=== PATIENT | female | born 1965 | race Caucasian/White ===

== ENCOUNTER 2016-09-11 13:53 | Emergency (ER) | payer OTHER ==
[~2016-09-11] VITALS: Ht 170.2 cm; Wt 90.7 kg
[2016-09-11 14:02] VITALS: BP 145/68
== END 2016-09-11 16:07 | disposition home or self-care (01) ==
LOC: ER 13:53
DX: S60.031A Contusion of right middle finger without damage to nail, initial encounter (principal); X58.XXXA Exposure to other specified factors, initial encounter; Y93.39 Activity, other involving climbing, rappelling and jumping off; Y99.8 Other external cause status; Y92.89 Other specified places as the place of occurrence of the external cause
CPT/HCPCS: 29130; 73140

== ENCOUNTER → 2016-11-09 | Outpatient (CLI) | payer OTHER | END | disposition home or self-care (01) | LOC: LAB 10:15 | DX: I10 Essential (primary) hypertension (principal) | CPT/HCPCS: 86735; 86762; 86765; 86787 ==

== ENCOUNTER → 2017-08-27 | Outpatient (CLI) | payer BC ==
[2017-08-27 08:39] LABS: Basophils # (auto) 0 uL; Basophils % (auto) 0.3 % (0.0-2.0); Eosinophils # (auto) 0.1 uL; Eosinophils % (auto) 1.3 % (0.0-7.0); Hematocrit 41.1 % (36.0-46.0); Hemoglobin 13.8 g/dL (12.2-16.2); Lymphocytes # (auto) 1.7 uL; Lymphocytes % (auto) 25.8 % (10.0-50.0); Mean Corpuscular Hemoglobin 32.7 pg (28.0-32.0); Mean Corpuscular Hgb Conc. 33.5 g/dL (32.0-36.0); Mean Corpuscular Volume 97.6 fL (80.0-100.0); Monocytes # (auto) 0.6 uL; Monocytes % (auto) 8.3 % (0.0-12.0); Neutrophils # (auto) 4.3 uL; Neutrophils % (auto) 64.3 % (37.0-80.0); Platelet Count (auto) 337 10^3/uL (140-450); Red Blood Cells 4.21 10^6/uL (4.0-5.20); Red Cell Distribution Width 12.6 % (11.8-14.3); White Blood Cell 6.6 10^3/uL (4.4-10.8)
[2017-08-27 09:20] LABS: Free T3 2.68 pg/mL (2.3-4.2)
[2017-08-27 09:21] LABS: Free T4 (Free Thyroxine) 1.17 ng/dL (0.89-1.76)
[2017-08-27 09:26] LABS: Albumin 3.8 g/dL (3.4-5.0); Bilirubin, Total 0.7 mg/dL (0.2-1.0); Calcium 8.3 mg/dL (8.5-10.1); Potassium 3.8 mmol/L (3.5-5.1); Total Protein 7.6 g/dL (6.4-8.2)
== END | disposition home or self-care (01) ==
LOC: LAB 07:32
PROVIDERS: ATTEND Internal Medicine
DX: Z00.01 Encounter for general adult medical examination with abnormal findings (principal); E03.9 Hypothyroidism, unspecified; E06.9 Thyroiditis, unspecified; I10 Essential (primary) hypertension
CPT/HCPCS: 36415; 80053; 80061; 83036; 84439; 84443; 84481; 85025

== ENCOUNTER → 2018-02-12 | Outpatient (CLI) | payer BC ==
[2018-02-12 15:22] LABS: Free T3 2.76 pg/mL (2.3-4.2); Free T4 (Free Thyroxine) 1.1 ng/dL (0.89-1.76)
== END | disposition home or self-care (01) ==
LOC: LAB 13:39
PROVIDERS: ATTEND Internal Medicine
DX: E03.9 Hypothyroidism, unspecified (principal)
CPT/HCPCS: 36415; 84439; 84443; 84481

== ENCOUNTER → 2018-04-14 | Day surgery (SDC) | payer BC ==
[2018-04-08 09:01] LABS: Basophils # (auto) 0 uL; Basophils % (auto) 0.3 % (0.0-2.0); Eosinophils # (auto) 0.1 uL; Eosinophils % (auto) 1.2 % (0.0-7.0); Hematocrit 41.5 % (36.0-46.0); Hemoglobin 13.6 g/dL (12.2-16.2); Lymphocytes # (auto) 2.4 uL; Lymphocytes % (auto) 29.6 % (10.0-50.0); Mean Corpuscular Hemoglobin 32.5 pg (28.0-32.0); Mean Corpuscular Hgb Conc. 32.9 g/dL (32.0-36.0); Mean Corpuscular Volume 98.8 fL (80.0-100.0); Monocytes # (auto) 0.7 uL; Monocytes % (auto) 8.5 % (0.0-12.0); Neutrophils # (auto) 4.9 uL; Neutrophils % (auto) 60.4 % (37.0-80.0); Platelet Count (auto) 335 10^3/uL (140-450); Red Cell Distribution Width 12.8 % (11.8-14.3); White Blood Cell 8.1 10^3/uL (4.4-10.8)
[2018-04-08 10:34] LABS: INR 0.88 (0.9-1.15); Partial Thromboplastin Time 28.2 sec (23.78-33.04); Prothrombin Time 9.5 sec (9.27-12.13)
[~2018-04-14] VITALS: Ht 170.2 cm; Wt 90.7 kg
[~2018-04-14] MED LIST: LEVO125T7 PO; LIOT5TAB9 PO; SODIUM CHLORIDE LOCK 10 ML ONE; diphenhdrAMINE 50mg/ml (500mg/10ml VIAL) ONE
[2018-04-14] MEDS: MIDAZOLAM HCL 5 MG/ML-1ML VIAL ONE ×3 (09:12→09:18)
[2018-04-14] MEDS: fentaNYL CITRATE 100 MCG/2 ML VL ONE ×2 (09:12→09:15)
[2018-04-14 09:59] VITALS: BP 126/66
== END | disposition home or self-care (01) ==
LOC: GI 06:46
PROVIDERS: ATTEND Internal Medicine Gastroenterology
DX: K63.5 Polyp of colon (principal); K57.30 Diverticulosis of large intestine without perforation or abscess without bleeding; K64.8 Other hemorrhoids; E66.9 Obesity, unspecified; Z68.31 Body mass index [BMI] 31.0-31.9, adult; Z98.890 Other specified postprocedural states
CPT/HCPCS: 36415; 45380; 84702; 85025; 85610; 85730; 99152; J1200; J2250; J3010; J7030

== ENCOUNTER → 2018-05-15 | Outpatient (CLI) | payer BC ==
[~2018-05-15] MED LIST changes: -SODIUM CHLORIDE LOCK 10 ML ONE; -diphenhdrAMINE 50mg/ml (500mg/10ml VIAL) ONE
== END | disposition home or self-care (01) ==
LOC: LAB 08:30
PROVIDERS: ATTEND Internal Medicine Gastroenterology
DX: K92.1 Melena (principal); K62.89 Other specified diseases of anus and rectum
CPT/HCPCS: 36415; 82565; 84520

== ENCOUNTER → 2018-06-19 | Outpatient (CLI) | payer BC | END | disposition home or self-care (01) | LOC: LAB 13:27 | PROVIDERS: ATTEND Internal Medicine Gastroenterology | DX: R10.9 Unspecified abdominal pain (principal) | CPT/HCPCS: 82784; 83516; 86255 ==

== ENCOUNTER 2018-08-17 12:14 | Inpatient (IN) | payer BC ==
[~2018-08-17] VITALS: Ht 170.2 cm; Wt 105.1 kg
[2018-08-17] MEDS ORDERED: ONDANSETRON HCL 4 MG/2 ML VIAL IV ONE (12:45)
[2018-08-17 12:56] LABS: Urine Bacteria NONE SEEN /hpf (None Seen); Urine Blood TRACE /uL (Negative); Urine Specific Gravity 1.001 (1.001-1.035); Urine WBC <1 /hpf (0 - 5)
[2018-08-17] MEDS ORDERED: ASPirin-EC 81 mg tab PO ONE (13:00)
[2018-08-17 13:25] LABS: Basophils # (auto) 0 uL; Basophils % (auto) 0.4 % (0.0-2.0); Eosinophils # (auto) 0.1 uL; Eosinophils % (auto) 1.1 % (0.0-7.0); Hematocrit 42.3 % (36.0-46.0); Hemoglobin 14.1 g/dL (12.2-16.2); Lymphocytes # (auto) 1.9 uL; Lymphocytes % (auto) 24.7 % (10.0-50.0); Mean Corpuscular Hemoglobin 32.5 pg (28.0-32.0); Mean Corpuscular Hgb Conc. 33.5 g/dL (32.0-36.0); Mean Corpuscular Volume 97.2 fL (80.0-100.0); Monocytes # (auto) 0.5 uL; Neutrophils # (auto) 5.3 uL; Neutrophils % (auto) 67.8 % (37.0-80.0); Nucleated Red Blood Cells % 0.1 %; Platelet Count (auto) 342 10^3/uL (140-450); Red Blood Cells 4.35 10^6/uL (4.0-5.20); Red Cell Distribution Width 13.4 % (11.8-14.3); White Blood Cell 7.8 10^3/uL (4.4-10.8)
[2018-08-17 13:37] LABS: Alanine Aminotransferase 15 U/L (13-56); Albumin 3.8 g/dL (3.4-5.0); Anion Gap 6 (5-15); Aspartate Aminotransferase 9 U/L (15-37); BUN/Creatinine Ratio 16.9; Blood Urea Nitrogen 10 mg/dL (7-18); Calcium 8.3 mg/dL (8.5-10.1); Carbon Dioxide 26 mmol/L (21-32); Chloride 111 mmol/L (98-107); GFR African American 139 mL/min; GFR Non-African American 115 mL/min; Glucose 89 mg/dL (74-106); Potassium 3.7 mmol/L (3.5-5.1); Sodium 143 mmol/L (136-145)
[2018-08-17 13:39] LABS: Bilirubin, Total 0.4 mg/dL (0.2-1.0); Total Protein 7.6 g/dL (6.4-8.2)
[2018-08-17 13:45] LABS: INR 0.93 (0.9-1.15)
[2018-08-17 13:47] LABS: Alkaline Phosphatase 80 U/L (45-117)
[2018-08-17] MEDS ORDERED: MORPHINE SULF INJ 2 MG/ML SYRINGE 1ML IV PRN ×2 (17:30)
[2018-08-17] MEDS ORDERED: NITROGLYCERIN 0.4 MG SL TAB SL PRN (17:30)
[2018-08-17] MEDS ORDERED: hydrALAZINE HCL 20 MG/ML VL IV PRN (17:30)
--- NOTE | 2018-08-17 19:35 | NUR ---
Telemetry admit from ER GEN SALAS admitted to Telemetry unit. Patient oriented to Bernadine carson RN, unit, room, bed, and unit policies regarding patient care and visiting hours. Patient now on continuous telemetry monitoring, tele box #HC 9 and telemetry reading on arrival to unit is SINUS RHYTHM. Patient weighed by bed scale and encouraged to call if they need something. All questions and concerns addressed, patient verbalized understanding.
[2018-08-17 19:40] VITALS: BP 130/85
[2018-08-17 21:00] VITALS: BP 130/85
[2018-08-17] MEDS: ATORVASTATIN 20 MG TAB PO SCH (21:49)
[2018-08-17] MEDS: METOPROLOL TARTRATE 25 MG TAB PO SCH (21:50)
[2018-08-17] MEDS: ACETAMINOPHEN 500 MG TAB PO PRN (21:51)
[2018-08-17 22:33] VITALS: BP 130/95
[2018-08-18 05:38] VITALS: BP 110/69
[2018-08-18 06:16] LABS: Basophils # (auto) 0 uL; Basophils % (auto) 0.4 % (0.0-2.0); Eosinophils # (auto) 0.1 uL; Eosinophils % (auto) 1.8 % (0.0-7.0); Hematocrit 41.5 % (36.0-46.0); Hemoglobin 13.9 g/dL (12.2-16.2); Lymphocytes # (auto) 2.6 uL; Lymphocytes % (auto) 38.6 % (10.0-50.0); Mean Corpuscular Hemoglobin 32.5 pg (28.0-32.0); Mean Corpuscular Hgb Conc. 33.5 g/dL (32.0-36.0); Mean Corpuscular Volume 97.2 fL (80.0-100.0); Monocytes # (auto) 0.5 uL; Monocytes % (auto) 7.5 % (0.0-12.0); Neutrophils # (auto) 3.5 uL; Neutrophils % (auto) 51.7 % (37.0-80.0); Nucleated Red Blood Cells % 0.1 %; Platelet Count (auto) 325 10^3/uL (140-450); Red Blood Cells 4.27 10^6/uL (4.0-5.20); Red Cell Distribution Width 13.2 % (11.8-14.3); White Blood Cell 6.8 10^3/uL (4.4-10.8)
[2018-08-18 06:48] LABS: Cholesterol 176 mg/dL (< 200); Triglycerides 127 mg/dL (< 150)
[2018-08-18 06:50] LABS: HDL Cholesterol 49 mg/dL (40-59); LDL Cholesterol 116 mg/dL (< 100)
[2018-08-18 07:03] LABS: BUN/Creatinine Ratio 12.7; Calcium 8.4 mg/dL (8.5-10.1); Potassium 3.6 mmol/L (3.5-5.1)
--- NOTE | 2018-08-18 07:09 | NUR ---
CLOSING NOTE REPORT ENDORSED TO DAY SHIFT RN PATIENT RESTING. NO S/S OF DISTRESS. NO INCIDENT DURING NIGHT. CALL LIGHT WITHIN REACH.
--- NOTE | 2018-08-18 08:15 | NUR ---
Opening Shift Note Assumed care of patient, awake and alert. No S/S of distress/SOB or pain. Instructed on POC and to call for assist PRN, will continue to monitor for changes Q1hr and PRN.
[2018-08-18 09:00] VITALS: BP 122/68
[2018-08-18] MEDS: ONDANSETRON HCL 4 MG/2 ML VIAL IV PRN (09:47)
[2018-08-18] MEDS: METOPROLOL TARTRATE 25 MG TAB PO SCH ×2 (10:00→21:25)
[2018-08-18] MEDS: ASPirin-EC 81 mg tab PO SCH (10:00)
[2018-08-18] MEDS ORDERED: LISINOPRIL 10 MG TAB PO SCH (10:00)
[2018-08-18] MEDS: PANTOPRAZOLE 40 MG/10 ML VIAL IV SCH (10:00)
--- NOTE | 2018-08-18 10:01 | NUR ---
DIZZINESS Patient reports feeling nauseous, weak, and dizzy. BP 144/93, 99% on 2L N/C, tele monitor reading SR in the 60's. Patient medicated as order. Daughter at bedside.
--- NOTE | 2018-08-18 10:30 | NUR ---
MACHINE FUR CLEANER AT BEDSIDE
--- NOTE | 2018-08-18 10:43 | NUR ---
DR JOEL HERNANDEZ
[2018-08-18] MEDS ORDERED: LEVOTHYROXINE SODIUM 50 MCG TAB PO ONE (11:30)
[2018-08-18 12:00] LABS: Free T3 2.82 pg/mL (2.3-4.2); Free T4 (Free Thyroxine) 1.05 ng/dL (0.89-1.76)
[2018-08-18] MEDS: ACETAMINOPHEN 500 MG TAB PO PRN (12:44)
[2018-08-18 13:00] VITALS: BP 124/81
[2018-08-18 17:00] VITALS: BP 131/76
[2018-08-18] MEDS: HYDROcodone-ACET 5/325MG TAB PO PRN (21:30)
[2018-08-18] MEDS: ATORVASTATIN 20 MG TAB PO SCH (21:30)
[2018-08-18 22:07] VITALS: BP 137/74
[2018-08-19 05:00] VITALS: BP 101/57
[2018-08-19] MEDS: LEVOTHYROXINE SODIUM 50 MCG TAB PO SCH (06:17)
[2018-08-19 09:00] VITALS: BP 114/78
[2018-08-19] MEDS: PANTOPRAZOLE 40 MG/10 ML VIAL IV SCH (09:51)
[2018-08-19] MEDS: ASPirin-EC 81 mg tab PO SCH (09:51)
[2018-08-19] MEDS: METOPROLOL TARTRATE 25 MG TAB PO SCH ×2 (10:00→21:29)
--- NOTE | 2018-08-19 10:30 | NUR ---
MD MARY ely on patient. Discussed plan of care with patient daughter at bedside. Patient will go for stress test tomorrow 08/20/18.
--- NOTE | 2018-08-19 11:00 | NUR ---
AMBULATION Patient ambulating hallway with daughter standby. Patient tolerating well.
[2018-08-19 13:00] VITALS: BP 144/73
[2018-08-19 17:00] VITALS: BP 124/76
[2018-08-19 20:00] VITALS: BP 125/70
[2018-08-19] MEDS: HYDROcodone-ACET 5/325MG TAB PO PRN (21:24)
[2018-08-19] MEDS: ATORVASTATIN 20 MG TAB PO SCH (21:24)
[2018-08-19 22:00] VITALS: BP 125/70
[2018-08-20 05:17] VITALS: BP 110/66
[2018-08-20] MEDS: LEVOTHYROXINE SODIUM 50 MCG TAB PO SCH (06:42)
--- NOTE | 2018-08-20 07:30 | NUR ---
Opening Shift Note Assumed care of patient, awake and alert, walking around with daughter standby. No S/S of distress/SOB or pain. Instructed on POC and to call for assist PRN, will continue to monitor for changes Q1hr and PRN. NOTES Two IV lines flushed, lines patent and free of pain. Patient stayed NPO for scheduled stress test.
[2018-08-20] MEDS ORDERED: ADENOSINE 87 MG in GIVE UN-DILUTED 0 ML IV STA (08:15)
[2018-08-20 08:35] VITALS: BP 113/68
[2018-08-20] MEDS: METOPROLOL TARTRATE 25 MG TAB PO SCH ×2 (10:00→21:30)
[2018-08-20] MEDS: ASPirin-EC 81 mg tab PO SCH (10:00)
[2018-08-20 11:18] VITALS: BP 141/90
--- NOTE | 2018-08-20 11:20 | NUR ---
ROUNDING Patient off unit to complete stress test.
--- NOTE | 2018-08-20 11:52 | NUR ---
ROUNDING Dr Hirsch rounding on patient. Patient clear for discharge if stress test negative.
--- NOTE | 2018-08-20 12:18 | NUR ---
RETURN TO UNIT Patient back on unit from stress lab. Dr Hardy rounded and states he will notify RN with stress test results and discharge clearance.
--- NOTE | 2018-08-20 14:46 | NUR ---
HOLD DISCHARGE Received call from Dr Hardy to hold discharge, prep patient for medical lab scientist in the morning 08/21/2018. states he will explain procedure and test results to patient in am.
--- NOTE | 2018-08-20 14:56 | NUR ---
PAGED Patient requests to speak with Doctor Hardy. Dr Hardy paged.
--- NOTE | 2018-08-20 16:00 | NUR ---
Patient spoke with Dr Hardy regarding test results and scheduled procedure tomorrow. Patient very anxious about procedure. Verbal and printed education provided. Dr Hirsch paged to make aware.
--- NOTE | 2018-08-20 16:29 | NUR ---
Telephone order read back and noted. Patients family at bedside. Patient much calmer. Encouraged patient to call PRN.
[2018-08-20 17:27] VITALS: BP 138/79
[2018-08-20] MEDS: ONDANSETRON HCL 4 MG/2 ML VIAL IV PRN (17:29)
[2018-08-20] MEDS: HYDROcodone-ACET 5/325MG TAB PO PRN (18:55)
--- NOTE | 2018-08-20 21:07 | NUR ---
PAGE TO RE: CARDIOLOGY REPORT FROM RECOMMENDATION OF [facility].
--- NOTE | 2018-08-20 21:10 | NUR ---
RETURNS CALL, UPDATED ON CARDIOLOGY REPORT FROM REGARDING STRESS TEST RESULT STATING "SEVERE REVERSIBILITY IN ALL TERRITORIES. RECOMMEND C [facility]". PER DR. MALDONADO PATIENT IS STABLE, WILL PROCEED WITH C IN AM. NO NEW ORDERS RECEIVED.
[2018-08-20] MEDS: ATORVASTATIN 20 MG TAB PO SCH (21:30)
[2018-08-20] MEDS: LORazepam 0.5 MG TAB PO PRN (21:39)
[2018-08-20 21:48] VITALS: BP 132/78
[2018-08-21 04:35] VITALS: BP 97/54
[2018-08-21] MEDS: LEVOTHYROXINE SODIUM 50 MCG TAB PO SCH (06:50)
--- NOTE | 2018-08-21 08:00 | NUR ---
OPENING NOTE PATIENT SUPPORT SYSTEM AT BEDSIDE. PATIENT STATES SHE IS ANXIOUS ABOUT HER PROCEDURE TODAY. PROVIDED EMOTIONAL SUPPORT AT THIS TIME. NO S/S OF DISTRESS. WILL CONTINUE TO MONITOR.
--- NOTE | 2018-08-21 08:30 | NUR ---
CALLED ORGAN FIXER PER PATIENT REQUEST FOR PENDING PROCEDURE TIME PER ORGAN FIXER PROCEDURE LIKELY AT 1200. INFORMED PATIENT, PATIENT VERBALIZED UNDERSTANDING.
[2018-08-21] MEDS: LORazepam 0.5 MG TAB PO PRN (08:32)
[2018-08-21 08:49] LABS: Basophils # (auto) 0 uL; Basophils % (auto) 0.5 % (0.0-2.0); Eosinophils # (auto) 0.1 uL; Hematocrit 43.1 % (36.0-46.0); Hemoglobin 14.3 g/dL (12.2-16.2); Lymphocytes # (auto) 1.7 uL; Lymphocytes % (auto) 26.7 % (10.0-50.0); Mean Corpuscular Hemoglobin 32.5 pg (28.0-32.0); Mean Corpuscular Hgb Conc. 33.2 g/dL (32.0-36.0); Mean Corpuscular Volume 97.9 fL (80.0-100.0); Monocytes # (auto) 0.5 uL; Neutrophils # (auto) 4.1 uL; Neutrophils % (auto) 63.8 % (37.0-80.0); Platelet Count (auto) 317 10^3/uL (140-450); Red Cell Distribution Width 13.1 % (11.8-14.3); White Blood Cell 6.4 10^3/uL (4.4-10.8)
[2018-08-21 09:04] LABS: BUN/Creatinine Ratio 23.8; Calcium 8.8 mg/dL (8.5-10.1)
[2018-08-21 09:08] LABS: INR 0.97 (0.9-1.15); Prothrombin Time 10.4 sec (9.27-12.13)
[2018-08-21] MEDS: METOPROLOL TARTRATE 25 MG TAB PO SCH (10:00)
[2018-08-21] MEDS: ASPirin-EC 81 mg tab PO SCH (10:00)
--- NOTE | 2018-08-21 10:40 | NUR ---
MD MALDONADO AT BEDSIDE. FAMILY AT BEDSIDE. ALL QUESTIONS AND CONCERNS ADDRESS. CONSENTS FOR PROCEDURE SIGNED AND PLACED IN CHART.
--- NOTE | 2018-08-21 12:00 | NUR ---
PATIENT TAKEN TO ELECTRIC WELDER FAMILY AT BEDSIDE. NO S/S OF DISTRESS.
[2018-08-21] MEDS ORDERED: ANGIOMAX 250 MG VIAL IV ONE (12:21)
[2018-08-21] MEDS ORDERED: SODIUM CHL 0.9% 0 ML ONE (12:21)
[2018-08-21] MEDS ORDERED: fentaNYL CITRATE 100 MCG/2 ML VL ONE (12:21)
[2018-08-21] MEDS ORDERED: MIDAZOLAM HCL 1MG/1ML-2 ML VIAL ONE ×2 (12:21→12:55)
[2018-08-21] MEDS ORDERED: IOHEXOL 350 MG/ML 100ML IJ ONE ×2 (12:29→12:31)
[2018-08-21] MEDS ORDERED: LIDOCAINE 2%HCL (LOCAL ANESTH.) INJ 20ML MDV ONE (12:31)
[2018-08-21 14:00] VITALS: BP 127/62
--- NOTE | 2018-08-21 14:00 | NUR ---
PATIENT BACK IN BED PER AUTOMATIC LINE SET UP MECHANIC NURSE, PATIENT OK TO SIT UP AT 1500. DRESSING CLEAN, DRY, AND INTACT.
--- NOTE | 2018-08-21 14:07 | NUR ---
SPOKE WITH MD BAHENA PATIENT REQUESTING NOTE TO RETURN TO WORK. PER PATIENT CAN RETURN TO WORK NEXT Saturday08/29/18. WILL FOLLOW THROUGH WITH NEW ORDERS.
[2018-08-21 14:15] VITALS: BP 119/70
[2018-08-21 15:30] VITALS: BP 115/74
--- NOTE | 2018-08-21 16:00 | NUR ---
Discharge instructions given as ordered. Encourage to follow up with PMD as instructed. All questions and concerns addressed. Patient verbalized understanding. Medication reconciliation form completed and copy given to patient. IV removed with catheter intact, pressure dressing applied. Right groin dressing from left heart cath clean, dry, and intact. Telemetry unit returned to ICU. Patient alert and oriented x4, walking with a steady gain, no complaints of pain. Patient taken to vehicle via wheelchair with all personal belongings, accompanied by staff and family member. No distress noted at time of departure.
== END 2018-08-21 16:00 | disposition home or self-care (01) | DRG 287 ==
LOC: ER 12:14 → TELE 17:28 → TELE-EAST 19:37
PROVIDERS: ADMIT Nurse Practitioner Acute Care; ATTEND Internal Medicine
PROC: 4A023N7 Measurement of Cardiac Sampling and Pressure, Left Heart, Percutaneous Approach (ICD-10-PCS; principal; 2018-08-21)
PROC: B2151ZZ Fluoroscopy of Left Heart using Low Osmolar Contrast (ICD-10-PCS; 2018-08-21)
PROC: B2111ZZ Fluoroscopy of Multiple Coronary Arteries using Low Osmolar Contrast (ICD-10-PCS; 2018-08-21)
DX: I25.10 Atherosclerotic heart disease of native coronary artery without angina pectoris (principal); I10 Essential (primary) hypertension; K57.90 Diverticulosis of intestine, part unspecified, without perforation or abscess without bleeding; E66.9 Obesity, unspecified; Z68.34 Body mass index [BMI] 34.0-34.9, adult; E06.3 Autoimmune thyroiditis; Z53.20 Procedure and treatment not carried out because of patient's decision for unspecified reasons; I48.0 Paroxysmal atrial fibrillation; I49.3 Ventricular premature depolarization
CPT/HCPCS: 36415; 70450; 71045; 78452; 80048; 80053; 80061; 81001; 81025; 83036; 83735; 84439; 84443; 84481; 84484; 85025; 85379; 85610; 85730; 86141; 93017; 93306; 94761; 96374; 99152; A6257; C9113; G0378; J0153; J2250; J2405

== ENCOUNTER → 2018-09-11 | Outpatient (CLI) | payer BC ==
[~2018-09-11] MED LIST changes: -LIOT5TAB9 PO; +METO25TA62 PO
== END | disposition home or self-care (01) ==
LOC: LAB 10:52
PROVIDERS: ATTEND Internal Medicine
DX: I10 Essential (primary) hypertension (principal)
CPT/HCPCS: 36415; 83036

== ENCOUNTER → 2018-10-08 | Outpatient (CLI) | payer BC | END | disposition home or self-care (01) | LOC: Rad HDHVI 15:46 | PROVIDERS: ATTEND Internal Medicine Cardiovascular Disease | DX: I48.0 Paroxysmal atrial fibrillation (principal); R42 Dizziness and giddiness | CPT/HCPCS: 93306 ==

== ENCOUNTER → 2018-12-24 | Outpatient (CLI) | payer BC ==
[2018-12-24 09:34] LABS: Basophils # (auto) 0 uL; Basophils % (auto) 0.3 % (0.0-2.0); Eosinophils # (auto) 0.1 uL; Eosinophils % (auto) 0.9 % (0.0-7.0); Hematocrit 40.3 % (36.0-46.0); Hemoglobin 13.3 g/dL (12.2-16.2); Lymphocytes # (auto) 2.2 uL; Lymphocytes % (auto) 28.5 % (10.0-50.0); Mean Corpuscular Hemoglobin 31.9 pg (28.0-32.0); Mean Corpuscular Hgb Conc. 32.9 g/dL (32.0-36.0); Monocytes # (auto) 0.6 uL; Monocytes % (auto) 7.4 % (0.0-12.0); Neutrophils # (auto) 4.8 uL; Neutrophils % (auto) 62.9 % (37.0-80.0); Platelet Count (auto) 314 10^3/uL (140-450); Red Blood Cells 4.15 10^6/uL (4.0-5.20); Red Cell Distribution Width 13.5 % (11.8-14.3); White Blood Cell 7.6 10^3/uL (4.4-10.8)
[2018-12-24 10:14] LABS: Albumin 3.5 g/dL (3.4-5.0); Calcium 8.6 mg/dL (8.5-10.1); Potassium 4.2 mmol/L (3.5-5.1)
[2018-12-24 10:17] LABS: BUN/Creatinine Ratio 22.4; Bilirubin, Total 0.4 mg/dL (0.2-1.0); Total Protein 7.4 g/dL (6.4-8.2)
== END | disposition home or self-care (01) ==
LOC: LAB 08:43
DX: I48.91 Unspecified atrial fibrillation (principal)
CPT/HCPCS: 36415; 80053; 84443; 85025

== ENCOUNTER → 2019-01-28 | Outpatient (CLI) | payer BC ==
[2019-01-28 09:03] LABS: Basophils # (auto) 0 uL; Basophils % (auto) 0.3 % (0.0-2.0); Eosinophils # (auto) 0.1 uL; Eosinophils % (auto) 0.9 % (0.0-7.0); Hematocrit 38.8 % (36.0-46.0); Lymphocytes # (auto) 1.9 uL; Lymphocytes % (auto) 27.5 % (10.0-50.0); Mean Corpuscular Hemoglobin 32.4 pg (28.0-32.0); Mean Corpuscular Hgb Conc. 33.6 g/dL (32.0-36.0); Mean Corpuscular Volume 96.3 fL (80.0-100.0); Monocytes # (auto) 0.5 uL; Monocytes % (auto) 8.1 % (0.0-12.0); Neutrophils # (auto) 4.3 uL; Neutrophils % (auto) 63.2 % (37.0-80.0); Platelet Count (auto) 336 10^3/uL (140-450); Red Blood Cells 4.03 10^6/uL (4.0-5.20); Red Cell Distribution Width 13.1 % (11.8-14.3); White Blood Cell 6.8 10^3/uL (4.4-10.8)
[2019-01-28 09:34] LABS: Albumin 3.6 g/dL (3.4-5.0); BUN/Creatinine Ratio 22.6; Calcium 8.4 mg/dL (8.5-10.1); Potassium 3.9 mmol/L (3.5-5.1)
[2019-01-28 09:36] LABS: Bilirubin, Total 0.4 mg/dL (0.2-1.0); Total Protein 7.1 g/dL (6.4-8.2)
== END | disposition home or self-care (01) ==
LOC: LAB 08:40
DX: I48.91 Unspecified atrial fibrillation (principal); E03.9 Hypothyroidism, unspecified
CPT/HCPCS: 36415; 80053; 84443; 85025

== ENCOUNTER → 2019-02-18 | Outpatient (CLI) | payer BC | END | disposition home or self-care (01) | LOC: Rad HDHVI 15:27 | PROVIDERS: ATTEND Internal Medicine Cardiovascular Disease | DX: I08.1 Rheumatic disorders of both mitral and tricuspid valves (principal); Q21.1 Atrial septal defect | CPT/HCPCS: 93306 ==

== ENCOUNTER → 2019-02-19 | Outpatient (CLI) | payer BC | END | disposition home or self-care (01) | LOC: XY 10:50 | PROVIDERS: ATTEND Internal Medicine Cardiovascular Disease | DX: M79.89 Other specified soft tissue disorders (principal) | CPT/HCPCS: 93926 ==

== ENCOUNTER → 2019-03-09 | Outpatient (CLI) | payer BC | END | disposition home or self-care (01) | LOC: Rad HDHVI 10:46 | PROVIDERS: ATTEND Internal Medicine Cardiovascular Disease | DX: I48.19 Other persistent atrial fibrillation (principal); I47.1 Supraventricular tachycardia; R42 Dizziness and giddiness | CPT/HCPCS: 93306 ==

== ENCOUNTER → 2019-03-30 | Outpatient (CLI) | payer BC | END | disposition home or self-care (01) | LOC: LAB 10:25 | PROVIDERS: ATTEND Internal Medicine Cardiovascular Disease | DX: R94.4 Abnormal results of kidney function studies (principal); E66.9 Obesity, unspecified; E03.9 Hypothyroidism, unspecified | CPT/HCPCS: 36415; 82565 ==

== ENCOUNTER → 2019-04-01 | Outpatient (CLI) | payer BC ==
[~2019-04-01] MED LIST changes: +IOHEXOL 350 MG/ML 100ML IJ ONE
[2019-04-01 08:45] VITALS: BP_SYST 153; BP_DIAS 74; BP_DIAS 79
--- NOTE | 2019-04-01 08:45 | NUR ---
CHF/CT PT ARRIVED AT THE CHF CLINIC FOR CT ABD/PELVIS WITH CONTRAST C/O LEG PAIN POST CARDIAC ABLATION. IV insertion IV access obtained, via clean sterile technique by inserting 22 gauge catheter at after attempt(s). IV secured properly. No trauma to site. Patient tolerated procedure well.
--- NOTE | 2019-04-01 09:00 | NUR ---
IV removal IV DC'd with sterile technique, catheter fully intact. Pressure dressing applied to site. Patient tolerated procedure well. Discharged with aftercare instructions per MD. NOTE:
[2019-04-01 09:02] VITALS: BP_SYST 151; BP_SYST 153; BP_DIAS 74; BP_DIAS 88
--- NOTE | 2019-04-01 09:02 | NUR ---
Discharge Instructions See e-MAR for any mediations given with this visit. Patient education given on disease process. Patient verbalized understanding. Previous labs reviewed. Patient discharged in stable condition with after care instructions and follow up appointment. PT TOLERATED CT WELL 0 DISTRESS
== END | disposition home or self-care (01) ==
LOC: Rad HDHVI 08:34
PROVIDERS: ATTEND Internal Medicine Cardiovascular Disease
DX: I70.0 Atherosclerosis of aorta (principal); K57.90 Diverticulosis of intestine, part unspecified, without perforation or abscess without bleeding; I48.0 Paroxysmal atrial fibrillation; S30.1XXD Contusion of abdominal wall, subsequent encounter; X58.XXXD Exposure to other specified factors, subsequent encounter; Z98.890 Other specified postprocedural states; Z86.79 Personal history of other diseases of the circulatory system
CPT/HCPCS: 74177; Q9967

== ENCOUNTER → 2019-07-15 | Outpatient (CLI) | payer BC ==
[~2019-07-15] MED LIST changes: -IOHEXOL 350 MG/ML 100ML IJ ONE; -METO25TA62 PO; +METO25TA93 PO
== END | disposition home or self-care (01) ==
LOC: LAB 15:18
PROVIDERS: ATTEND Internal Medicine
DX: Z12.11 Encounter for screening for malignant neoplasm of colon (principal); I10 Essential (primary) hypertension; E11.9 Type 2 diabetes mellitus without complications
CPT/HCPCS: 36415; 82043; 83036; 84443

== ENCOUNTER → 2019-07-22 | Outpatient (CLI) | payer BC ==
[2019-07-22 09:07] LABS: Basophils # (auto) 0 10 ^3/uL (0-0.2); Basophils % (auto) 0.4 % (0.0-2.0); Eosinophils # (auto) 0.1 10 ^3/uL (0-0.8); Eosinophils % (auto) 1.8 % (0.0-7.0); Hematocrit 41.9 % (36.0-46.0); Hemoglobin 13.7 g/dL (12.2-16.2); Lymphocytes # (auto) 1.9 10 ^3/uL (0.4-5.4); Lymphocytes % (auto) 42.3 % (10.0-50.0); Mean Corpuscular Hemoglobin 30.8 pg (28.0-32.0); Mean Corpuscular Hgb Conc. 32.6 g/dL (32.0-36.0); Mean Corpuscular Volume 94.6 fL (80.0-100.0); Monocytes # (auto) 0.5 10 ^3/uL (0-1.3); Monocytes % (auto) 10.3 % (0.0-12.0); Neutrophils % (auto) 45.2 % (37.0-80.0); Nucleated Red Blood Cells % 0.1 %; Platelet Count (auto) 345 10^3/uL (140-450); Red Blood Cells 4.43 10^6/uL (4.0-5.20); Red Cell Distribution Width 15.1 % (11.8-14.3); White Blood Cell 4.5 10^3/uL (4.4-10.8)
[2019-07-22 09:30] LABS: INR 1.17 (0.9-1.15)
[2019-07-22 09:56] LABS: Follicle Stimulating Hormone 44.61 IU/L (SEE BELOW); Leuteinizing Hormone 30.4 IU/L
== END | disposition home or self-care (01) ==
LOC: LAB 08:33
PROVIDERS: ATTEND Obstetrics & Gynecology
DX: N95.1 Menopausal and female climacteric states (principal); E11.9 Type 2 diabetes mellitus without complications; I48.0 Paroxysmal atrial fibrillation; I10 Essential (primary) hypertension
CPT/HCPCS: 36415; 82670; 83001; 83002; 84403; 84443; 85025; 85610; 85730

== ENCOUNTER → 2019-08-10 | Outpatient (CLI) | payer BC | END | disposition home or self-care (01) | LOC: LAB 10:06 | PROVIDERS: ATTEND Obstetrics & Gynecology | DX: N95.1 Menopausal and female climacteric states (principal) | CPT/HCPCS: 82270 ==

== ENCOUNTER → 2019-11-11 | Outpatient (CLI) | payer BC ==
[2019-11-11 10:01] LABS: Cholesterol 204 mg/dL (< 200); HDL Cholesterol 58 mg/dL (40-59); LDL Cholesterol 139 mg/dL (< 100); Triglycerides 90 mg/dL (< 150)
[2019-11-11 10:08] LABS: Free T3 2.62 pg/mL (2.3-4.2); Free T4 (Free Thyroxine) 1.38 ng/dL (0.89-1.76)
== END | disposition home or self-care (01) ==
LOC: LAB 09:01
PROVIDERS: ATTEND Internal Medicine
DX: I48.0 Paroxysmal atrial fibrillation (principal); R73.03 Prediabetes; N92.6 Irregular menstruation, unspecified
CPT/HCPCS: 36415; 80061; 83036; 83540; 84439; 84443; 84481

== ENCOUNTER → 2020-01-05 | Outpatient (CLI) | payer BC ==
[2020-01-05 11:41] LABS: Basophils # (auto) 0 10 ^3/uL (0-0.2); Basophils % (auto) 0.4 % (0.0-2.0); Eosinophils # (auto) 0 10 ^3/uL (0-0.8); Eosinophils % (auto) 0.6 % (0.0-7.0); Hematocrit 39.9 % (36.0-46.0); Hemoglobin 13.2 g/dL (12.2-16.2); Lymphocytes # (auto) 2.1 10 ^3/uL (0.4-5.4); Lymphocytes % (auto) 36.2 % (10.0-50.0); Mean Corpuscular Hemoglobin 32.3 pg (28.0-32.0); Monocytes # (auto) 0.4 10 ^3/uL (0-1.3); Monocytes % (auto) 7.2 % (0.0-12.0); Neutrophils # (auto) 3.2 10 ^3/uL (1.6-8.6); Neutrophils % (auto) 55.6 % (37.0-80.0); Platelet Count (auto) 383 10^3/uL (140-450); Red Blood Cells 4.08 10^6/uL (4.0-5.20); Red Cell Distribution Width 13.9 % (11.8-14.3); White Blood Cell 5.7 10^3/uL (4.4-10.8)
[2020-01-05 11:57] LABS: INR 1.07 (0.9-1.15); Partial Thromboplastin Time 31.1 sec (23.0-31.2)
[2020-01-05 12:35] LABS: Follicle Stimulating Hormone 30.4 IU/L (SEE BELOW); Leuteinizing Hormone 26.4 IU/L
[2020-01-06 07:09] LABS: RPR Non Reactive (Non Reactive)
== END | disposition home or self-care (01) ==
LOC: LAB 11:08
PROVIDERS: ATTEND Obstetrics & Gynecology
DX: N95.1 Menopausal and female climacteric states (principal); D72.9 Disorder of white blood cells, unspecified
CPT/HCPCS: 36415; 82672; 83001; 83002; 84403; 84443; 85025; 85610; 85730; 86592; 86703; 87340

== ENCOUNTER → 2020-04-18 | Outpatient (CLI) | payer OTHER | END | disposition home or self-care (01) | LOC: LAB 06:32 | PROVIDERS: ATTEND Nurse Practitioner Family | DX: U07.1 COVID-19 (principal) | CPT/HCPCS: C9803; U0003 ==

== ENCOUNTER → 2020-05-02 | Outpatient (CLI) | payer BC ==
[2020-05-03 06:06] LABS: RPR Non Reactive (Non Reactive)
== END | disposition home or self-care (01) ==
LOC: LAB 09:09
PROVIDERS: ATTEND Obstetrics & Gynecology
DX: Z72.51 High risk heterosexual behavior (principal)
CPT/HCPCS: 36415; 86592; 86703; 87086; 87340

== ENCOUNTER → 2020-05-17 | Outpatient (CLI) | payer BC ==
[2020-05-17 14:33] LABS: Urine Bacteria NONE SEEN /hpf (None Seen); Urine Blood 1+ /uL (Negative); Urine Specific Gravity 1.003 (1.001-1.035); Urine WBC 9 /hpf (0 - 5)
== END | disposition home or self-care (01) ==
LOC: LAB 14:12
PROVIDERS: ATTEND Obstetrics & Gynecology
DX: N76.0 Acute vaginitis (principal); N39.0 Urinary tract infection, site not specified; Z20.2 Contact with and (suspected) exposure to infections with a predominantly sexual mode of transmission
CPT/HCPCS: 81001; 86695; 86696; 87070; 87086

== ENCOUNTER → 2020-05-24 | Outpatient (CLI) | payer BC ==
[2020-05-24 11:40] LABS: Basophils # (auto) 0 10 ^3/uL (0-0.2); Basophils % (auto) 0.3 % (0.0-2.0); Eosinophils # (auto) 0 10 ^3/uL (0-0.8); Eosinophils % (auto) 0.5 % (0.0-7.0); Hematocrit 40.4 % (36.0-46.0); Hemoglobin 13.7 g/dL (12.2-16.2); Lymphocytes # (auto) 1.9 10 ^3/uL (0.4-5.4); Lymphocytes % (auto) 30.2 % (10.0-50.0); Mean Corpuscular Hemoglobin 33.2 pg (28.0-32.0); Mean Corpuscular Hgb Conc. 33.9 g/dL (32.0-36.0); Mean Corpuscular Volume 97.8 fL (80.0-100.0); Monocytes # (auto) 0.5 10 ^3/uL (0-1.3); Monocytes % (auto) 8.1 % (0.0-12.0); Neutrophils # (auto) 3.9 10 ^3/uL (1.6-8.6); Neutrophils % (auto) 60.9 % (37.0-80.0); Platelet Count (auto) 302 10^3/uL (140-450); Red Blood Cells 4.13 10^6/uL (4.0-5.20); Red Cell Distribution Width 14.6 % (11.8-14.3); White Blood Cell 6.4 10^3/uL (4.4-10.8)
[2020-05-24 12:09] LABS: Albumin 3.7 g/dL (3.4-5.0); Potassium 4.1 mmol/L (3.5-5.1)
[2020-05-24 12:12] LABS: BUN/Creatinine Ratio 10.7; Bilirubin, Total 0.5 mg/dL (0.2-1.0); Total Protein 7.8 g/dL (6.4-8.2)
== END | disposition home or self-care (01) ==
LOC: LAB 11:16
PROVIDERS: ATTEND Internal Medicine
DX: R06.02 Shortness of breath (principal)
CPT/HCPCS: 36415; 80053; 85025; 85379

== ENCOUNTER → 2020-06-14 | Outpatient (CLI) | payer BC | END | disposition home or self-care (01) | LOC: LAB 16:59 | PROVIDERS: ATTEND Obstetrics & Gynecology | DX: N39.0 Urinary tract infection, site not specified (principal) | CPT/HCPCS: 87086 ==

== ENCOUNTER → 2020-07-12 | Outpatient (CLI) | payer BC ==
[2020-07-12 13:28] LABS: Basophils # (auto) 0 10 ^3/uL (0-0.2); Basophils % (auto) 0.3 % (0.0-2.0); Eosinophils # (auto) 0 10 ^3/uL (0-0.8); Eosinophils % (auto) 0.5 % (0.0-7.0); Hematocrit 40.2 % (36.0-46.0); Hemoglobin 13.8 g/dL (12.2-16.2); Lymphocytes # (auto) 1.9 10 ^3/uL (0.4-5.4); Lymphocytes % (auto) 33.9 % (10.0-50.0); Mean Corpuscular Hemoglobin 33.6 pg (28.0-32.0); Mean Corpuscular Hgb Conc. 34.3 g/dL (32.0-36.0); Mean Corpuscular Volume 97.9 fL (80.0-100.0); Monocytes # (auto) 0.5 10 ^3/uL (0-1.3); Monocytes % (auto) 8.1 % (0.0-12.0); Neutrophils # (auto) 3.2 10 ^3/uL (1.6-8.6); Neutrophils % (auto) 57.2 % (37.0-80.0); Nucleated Red Blood Cells % 0.1 %; Platelet Count (auto) 284 10^3/uL (140-450); Red Blood Cells 4.11 10^6/uL (4.0-5.20); Red Cell Distribution Width 14.3 % (11.8-14.3); White Blood Cell 5.6 10^3/uL (4.4-10.8)
[2020-07-12 14:21] LABS: Leuteinizing Hormone 40.6 IU/L
[2020-07-12 14:22] LABS: Follicle Stimulating Hormone 47.87 IU/L (SEE BELOW)
== END | disposition home or self-care (01) ==
LOC: LAB 13:16
PROVIDERS: ATTEND Obstetrics & Gynecology
DX: N93.9 Abnormal uterine and vaginal bleeding, unspecified (principal)
CPT/HCPCS: 36415; 82672; 83001; 83002; 84403; 84443; 85025

== ENCOUNTER → 2020-07-18 | Outpatient (CLI) | payer BC ==
[2020-07-18 17:23] LABS: Urine Bacteria NONE SEEN /hpf (None Seen); Urine Blood Negative /uL (Negative); Urine Specific Gravity 1.006 (1.001-1.035); Urine WBC 1 /hpf (0 - 5)
== END | disposition home or self-care (01) ==
LOC: LAB 17:10
PROVIDERS: ATTEND Urology
DX: R31.9 Hematuria, unspecified (principal)
CPT/HCPCS: 81001; 87086

== ENCOUNTER → 2020-10-11 | Outpatient (CLI) | payer BC | END | disposition home or self-care (01) | LOC: LAB 14:08 | PROVIDERS: ATTEND Specialist | DX: N39.0 Urinary tract infection, site not specified (principal) | CPT/HCPCS: 87086 ==

== ENCOUNTER → 2020-12-06 | Outpatient (CLI) | payer BC | END | disposition home or self-care (01) | LOC: LAB 07:41 | PROVIDERS: ATTEND Internal Medicine | DX: E04.1 Nontoxic single thyroid nodule (principal) | CPT/HCPCS: 36415; 84443 ==

== ENCOUNTER → 2020-12-12 | Outpatient (CLI) | payer BC | END | disposition home or self-care (01) | LOC: LAB 07:42 | PROVIDERS: ATTEND Internal Medicine | DX: E04.1 Nontoxic single thyroid nodule (principal); M54.5 Low back pain; R73.03 Prediabetes | CPT/HCPCS: 36415; 82043; 83036; 85652; 86141 ==

== ENCOUNTER 2021-02-17 16:06 | Inpatient (IN) | payer BC ==
[~2021-02-17] VITALS: Ht 170.2 cm; Wt 98.6 kg
[2021-02-17 17:06] LABS: Basophils # (auto) 0 10 ^3/uL (0-0.2); Basophils % (auto) 0.2 % (0.0-2.0); Eosinophils # (auto) 0 10 ^3/uL (0-0.8); Eosinophils % (auto) 0.5 % (0.0-7.0); Hematocrit 41.6 % (36.0-46.0); Hemoglobin 13.7 g/dL (12.2-16.2); Lymphocytes # (auto) 2.6 10 ^3/uL (0.4-5.4); Lymphocytes % (auto) 36.1 % (10.0-50.0); Mean Corpuscular Volume 99.9 fL (80.0-100.0); Monocytes # (auto) 0.5 10 ^3/uL (0-1.3); Monocytes % (auto) 6.7 % (0.0-12.0); Neutrophils % (auto) 56.5 % (37.0-80.0); Red Blood Cells 4.17 10^6/uL (4.0-5.20); Red Cell Distribution Width 13.1 % (11.8-14.3); White Blood Cell 7.1 10^3/uL (4.4-10.8)
[2021-02-17] MEDS ORDERED: ASPirin 81 mg TAB PO ONE (17:15)
[2021-02-17 17:22] LABS: Alanine Aminotransferase 18 U/L (13-56); Albumin 3.5 g/dL (3.4-5.0); Anion Gap 9 (5-15); Aspartate Aminotransferase 8 U/L (15-37); BUN/Creatinine Ratio 18.2; Blood Urea Nitrogen 12 mg/dL (7-18); Calcium 8.9 mg/dL (8.5-10.1); Carbon Dioxide 26 mmol/L (21-32); Chloride 108 mmol/L (98-107); GFR African American 120 mL/min; GFR Non-African American 100 mL/min; Glucose 133 mg/dL (74-106); Potassium 3.6 mmol/L (3.5-5.1); Sodium 143 mmol/L (136-145)
[2021-02-17 17:27] LABS: Alkaline Phosphatase 60 U/L (45-117); Bilirubin, Total 0.4 mg/dL (0.2-1.0); Total Protein 7.3 g/dL (6.4-8.2)
[2021-02-17 17:49] LABS: Urine Bacteria FEW /hpf (None Seen); Urine Blood 1+ /uL (Negative); Urine Mucus FEW (None Seen); Urine WBC 40 /hpf (0 - 5)
[2021-02-17] MEDS ORDERED: dilTIAZem 25 MG/5 ML VIAL IV ONE (19:15)
[2021-02-17] MEDS ORDERED: ACETAMINOPHEN 325 MG TAB PO ONE (20:30)
[2021-02-17] MEDS ORDERED: ACETAMINOPHEN 325 MG TAB PO PRN (22:30)
[2021-02-17] MEDS ORDERED: cloNIDine HCL 0.1 MG TAB PO PRN (22:30)
[2021-02-17] MEDS ORDERED: HYDROcodone-ACET 5/325MG TAB PO PRN (22:30)
[2021-02-17] MEDS ORDERED: MORPHINE SULFATE 4 MG/ML SYR/VIAL IV PRN (22:30)
[2021-02-17] MEDS: cefTRIAXone 1GM/50ML D5W 50 ML IV SCH (23:28)
[2021-02-18] VITALS (8 sets, daily range): BP systolic 109–130; BP diastolic 70–85
[2021-02-18] MEDS ORDERED: MORPHINE SULFATE INJECTION 2 MG/ML SYRG IV PRN
[2021-02-18] MEDS ORDERED: NITROGLYCERIN 0.4 MG SL TAB SL PRN
[2021-02-18] MEDS ORDERED: MAGN400T40 PO (04:37)
[2021-02-18] MEDS ORDERED: ALPR0.25 PO (04:37)
[2021-02-18] MEDS ORDERED: RIVA20TA PO (04:37)
[2021-02-18] MEDS ORDERED: ASPI-543 PO (04:37)
[2021-02-18 05:22] LABS: Basophils # (auto) 0 10 ^3/uL (0-0.2); Basophils % (auto) 0.3 % (0.0-2.0); Eosinophils # (auto) 0.1 10 ^3/uL (0-0.8); Eosinophils % (auto) 1.6 % (0.0-7.0); Hematocrit 37.6 % (36.0-46.0); Hemoglobin 12.6 g/dL (12.2-16.2); Lymphocytes # (auto) 3.3 10 ^3/uL (0.4-5.4); Lymphocytes % (auto) 52.7 % (10.0-50.0); Mean Corpuscular Hemoglobin 32.9 pg (28.0-32.0); Mean Corpuscular Hgb Conc. 33.4 g/dL (32.0-36.0); Mean Corpuscular Volume 98.6 fL (80.0-100.0); Monocytes # (auto) 0.5 10 ^3/uL (0-1.3); Monocytes % (auto) 7.4 % (0.0-12.0); Neutrophils # (auto) 2.4 10 ^3/uL (1.6-8.6); Nucleated Red Blood Cells % 0.1 %; Red Blood Cells 3.81 10^6/uL (4.0-5.20); Red Cell Distribution Width 12.8 % (11.8-14.3); White Blood Cell 6.4 10^3/uL (4.4-10.8)
[2021-02-18 05:37] LABS: BUN/Creatinine Ratio 19.6; Potassium 3.3 mmol/L (3.5-5.1)
[2021-02-18 05:38] LABS: Albumin 3.1 g/dL (3.4-5.0); Calcium 8.7 mg/dL (8.5-10.1)
[2021-02-18 05:40] LABS: Bilirubin, Total 0.5 mg/dL (0.2-1.0); Total Protein 6.4 g/dL (6.4-8.2)
[2021-02-18] MEDS: SODIUM CHLOR 0.9% PF (SALINE LOCK) 10ML VIAL/SYR IV SCH ×3 (06:21→22:13)
[2021-02-18] MEDS: ONDANSETRON HCL 4 MG/2 ML VIAL IV PRN ×2 (09:31→20:45)
[2021-02-18] MEDS: FAMOTIDINE (10MG/ML) 2ML VL IV SCH (09:34)
[2021-02-18] MEDS: METOPROLOL TARTRATE 25 MG TAB PO SCH ×2 (09:37→22:00)
[2021-02-18] MEDS ORDERED: ENOXAPARIN SOD 40 MG/0.4 ML SYRINGE SC SCH (10:00)
[2021-02-18] MEDS ORDERED: ASPirin 81 mg TAB PO SCH (10:00)
[2021-02-18] MEDS ORDERED: ATORVASTATIN 20 MG TAB PO ONE (12:00)
[2021-02-18] MEDS ORDERED: LISINOPRIL 20 MG TAB PO ONE (12:00)
[2021-02-18 12:04] LABS: Triglycerides 78 mg/dL (< 150)
[2021-02-18 12:18] LABS: Cholesterol 183 mg/dL (< 200); HDL Cholesterol 55 mg/dL (40-59); LDL Cholesterol 112 mg/dL (< 100)
[2021-02-18] MEDS ORDERED: POTASSIUM CHL 20 Meq TABLET PO ONE (13:00)
[2021-02-18] MEDS ORDERED: IOHEXOL 300 MG/ML 100ML BOTTLE IJ ONE (15:54)
[2021-02-18] MEDS ORDERED: SODIUM CHLORIDE 0.9% 1,000 ML IV ONE (19:00)
[2021-02-18] MEDS: RIVAROXABAN 20 MG TAB PO SCH (19:05)
[2021-02-18] MEDS: MAGNESIUM OXIDE 400 MG TAB PO SCH (22:13)
[2021-02-18] MEDS: ATORVASTATIN 20 MG TAB PO SCH (22:13)
[2021-02-18] MEDS: cefTRIAXone 1GM/50ML D5W 50 ML IV SCH (22:13)
[2021-02-19] MEDS ORDERED: ALPRAZolam 0.25 MG TAB PO ONE (00:30)
[2021-02-19 05:00] VITALS: BP 107/67
[2021-02-19] MEDS: SODIUM CHLOR 0.9% PF (SALINE LOCK) 10ML VIAL/SYR IV SCH ×3 (06:00→21:52)
[2021-02-19 06:22] LABS: Potassium 3.8 mmol/L (3.5-5.1)
[2021-02-19 06:30] LABS: Calcium 8.4 mg/dL (8.5-10.1)
[2021-02-19] MEDS: LEVOTHYROXINE SODIUM 112 MCG TAB PO SCH (06:34)
[2021-02-19 09:00] VITALS: BP 108/65
[2021-02-19] MEDS: MAGNESIUM OXIDE 400 MG TAB PO SCH ×2 (09:11→21:52)
[2021-02-19] MEDS: METOPROLOL SUCCINATE XL 50 MG TAB PO SCH (09:11)
[2021-02-19] MEDS: FAMOTIDINE (10MG/ML) 2ML VL IV SCH (09:11)
[2021-02-19] MEDS: LISINOPRIL 20 MG TAB PO SCH (09:13)
[2021-02-19 13:00] VITALS: BP 126/94
[2021-02-19 17:00] VITALS: BP 125/81
[2021-02-19] MEDS: RIVAROXABAN 20 MG TAB PO SCH (17:33)
[2021-02-19] MEDS: DOCUSATE SOD 100 MG CAP PO PRN (17:45)
[2021-02-19] MEDS ORDERED: FLUCONAZOLE 100 MG TAB PO ONE (19:15)
[2021-02-19] MEDS ORDERED: LORazepam 2MG/ML-1ML VIAL IV PRN (20:00)
[2021-02-19] MEDS: cefTRIAXone 1GM/50ML D5W 50 ML IV SCH (21:52)
[2021-02-19] MEDS: ATORVASTATIN 20 MG TAB PO SCH (21:52)
[2021-02-19 22:00] VITALS: BP 128/70
[2021-02-19] MEDS: ONDANSETRON HCL 4 MG/2 ML VIAL IV PRN (23:00)
[2021-02-20 05:00] VITALS: BP 126/49
[2021-02-20] MEDS: LEVOTHYROXINE SODIUM 112 MCG TAB PO SCH (05:23)
[2021-02-20] MEDS: SODIUM CHLOR 0.9% PF (SALINE LOCK) 10ML VIAL/SYR IV SCH ×3 (05:25→22:00)
[2021-02-20 09:00] VITALS: BP 130/77
[2021-02-20] MEDS: METOPROLOL SUCCINATE XL 50 MG TAB PO SCH (10:00)
[2021-02-20] MEDS: LISINOPRIL 20 MG TAB PO SCH (10:00)
[2021-02-20] MEDS: FLUCONAZOLE 100 MG TAB PO SCH (10:00)
[2021-02-20] MEDS: MAGNESIUM OXIDE 400 MG TAB PO SCH ×2 (10:00→22:22)
[2021-02-20] MEDS ORDERED: LORazepam 2MG/ML-1ML VIAL IV ONE (10:30)
[2021-02-20] MEDS: FAMOTIDINE (10MG/ML) 2ML VL IV SCH (10:45)
[2021-02-20 13:00] VITALS: BP 108/70
[2021-02-20] MEDS: ONDANSETRON HCL 4 MG/2 ML VIAL IV PRN (14:08)
[2021-02-20] MEDS ORDERED: LACTULOSE 20Gm/30ML SOLN PO ONE (15:00)
[2021-02-20 17:00] VITALS: BP 110/68
[2021-02-20] MEDS: RIVAROXABAN 20 MG TAB PO SCH (18:24)
[2021-02-20 21:35] VITALS: BP 105/71
[2021-02-20] MEDS: cefTRIAXone 1GM/50ML D5W 50 ML IV SCH (22:21)
[2021-02-20] MEDS: SOTALOL HCL 80 MG TAB PO SCH (22:22)
[2021-02-20] MEDS: ATORVASTATIN 20 MG TAB PO SCH (22:22)
[2021-02-20] MEDS ORDERED: TEMAZEPAM 15 MG CAP PO ONE (22:30)
[2021-02-21 04:49] VITALS: BP 97/62
[2021-02-21] MEDS: SODIUM CHLOR 0.9% PF (SALINE LOCK) 10ML VIAL/SYR IV SCH ×3 (07:00→21:18)
[2021-02-21] MEDS ORDERED: ADENOSINE 72 MG in GIVE UN-DILUTED 0 ML IV STA (08:20)
[2021-02-21 08:28] VITALS: BP 113/72
[2021-02-21 09:30] VITALS: BP 105/65
[2021-02-21] MEDS: LISINOPRIL 20 MG TAB PO SCH (10:00)
[2021-02-21] MEDS: FAMOTIDINE (10MG/ML) 2ML VL IV SCH (10:16)
[2021-02-21] MEDS: MAGNESIUM OXIDE 400 MG TAB PO SCH ×2 (10:23→21:17)
[2021-02-21] MEDS: LEVOTHYROXINE SODIUM 112 MCG TAB PO SCH (10:23)
[2021-02-21] MEDS: SOTALOL HCL 80 MG TAB PO SCH ×2 (10:24→21:18)
[2021-02-21] MEDS: FLUCONAZOLE 100 MG TAB PO SCH (10:26)
[2021-02-21 13:30] VITALS: BP 128/83
[2021-02-21 17:10] VITALS: BP 109/55
[2021-02-21] MEDS: DOCUSATE SOD 100 MG CAP PO PRN (18:24)
[2021-02-21] MEDS: RIVAROXABAN 20 MG TAB PO SCH (18:24)
[2021-02-21] MEDS ORDERED: TEMAZEPAM 15 MG CAP PO PRN (20:30)
[2021-02-21] MEDS: ATORVASTATIN 20 MG TAB PO SCH (21:17)
[2021-02-21] MEDS: cefTRIAXone 1GM/50ML D5W 50 ML IV SCH (21:23)
[2021-02-21 22:00] VITALS: BP 128/74
[2021-02-22 05:00] VITALS: BP 91/54
[2021-02-22] MEDS: SODIUM CHLOR 0.9% PF (SALINE LOCK) 10ML VIAL/SYR IV SCH ×2 (06:26→14:20)
[2021-02-22] MEDS: LEVOTHYROXINE SODIUM 112 MCG TAB PO SCH (06:48)
[2021-02-22 09:00] VITALS: BP 111/75
[2021-02-22] MEDS: SOTALOL HCL 80 MG TAB PO SCH (10:00)
[2021-02-22] MEDS: LISINOPRIL 20 MG TAB PO SCH (10:00)
[2021-02-22] MEDS: FAMOTIDINE (10MG/ML) 2ML VL IV SCH (10:00)
[2021-02-22] MEDS: MAGNESIUM OXIDE 400 MG TAB PO SCH (10:00)
[2021-02-22] MEDS: FLUCONAZOLE 100 MG TAB PO SCH (10:00)
[2021-02-22 13:00] VITALS: BP 128/83
[2021-02-22 14:26] VITALS: BP 111/75
== END 2021-02-22 15:00 | disposition home or self-care (01) | DRG 125 ==
LOC: EEVIPCON 16:06 → ER 16:06 → TELE-CENTR 23:59
PROVIDERS: ADMIT Nurse Practitioner Family; ATTEND Family Medicine
DX: H53.8 Other visual disturbances (principal); N39.0 Urinary tract infection, site not specified; R07.89 Other chest pain; E78.00 Pure hypercholesterolemia, unspecified; E87.6 Hypokalemia; F40.240 Claustrophobia; G47.00 Insomnia, unspecified; Z20.822 Contact with and (suspected) exposure to COVID-19; I10 Essential (primary) hypertension; E03.9 Hypothyroidism, unspecified; I25.10 Atherosclerotic heart disease of native coronary artery without angina pectoris; I48.91 Unspecified atrial fibrillation; Z79.01 Long term (current) use of anticoagulants; Z79.899 Other long term (current) drug therapy; Z80.3 Family history of malignant neoplasm of breast; Z83.3 Family history of diabetes mellitus
CPT/HCPCS: 36415; 70470; 70540; 70551; 71045; 78452; 80048; 80053; 80061; 81001; 83036; 84443; 84484; 85025; 87086; 87426; 93005; 93017; 93306; 99291; G0378; J0153; J0696; J2405; J3490

== ENCOUNTER → 2021-05-10 | Outpatient (CLI) | payer BC ==
[~2021-05-10] MED LIST changes: +ALPR0.25 PO; +ASPI-543 PO; +MAGN400T40 PO; +RIVA20TA PO
[2021-05-10 10:36] LABS: Urine Bacteria NONE SEEN /hpf (None Seen); Urine Blood 1+ /uL (Negative); Urine Specific Gravity 1.012 (1.001-1.035); Urine WBC 2 /hpf (0 - 5)
[2021-05-10 11:13] LABS: Potassium 4.4 mmol/L (3.5-5.1)
[2021-05-10 11:18] LABS: BUN/Creatinine Ratio 23.7; Bilirubin, Total 0.6 mg/dL (0.2-1.0); Total Protein 7.4 g/dL (6.4-8.2)
[2021-05-10 11:55] LABS: Free T4 (Free Thyroxine) 1.3 ng/dL (0.89-1.76)
[2021-05-10 11:56] LABS: Free T3 2.97 pg/mL (2.3-4.2)
== END | disposition home or self-care (01) ==
LOC: LAB 09:59
PROVIDERS: ATTEND Internal Medicine
DX: I48.0 Paroxysmal atrial fibrillation (principal); E03.9 Hypothyroidism, unspecified; N39.0 Urinary tract infection, site not specified; E78.5 Hyperlipidemia, unspecified; R00.2 Palpitations
CPT/HCPCS: 36415; 80053; 81001; 82043; 84439; 84443; 84481

== ENCOUNTER → 2021-06-30 | Outpatient (CLI) | payer BC ==
[2021-06-30 12:12] LABS: Urine Bacteria NONE SEEN /hpf (None Seen); Urine Blood Negative /uL (Negative); Urine Specific Gravity 1.005 (1.001-1.035); Urine WBC <1 /hpf (0 - 5)
== END | disposition home or self-care (01) ==
LOC: LAB 09:24
PROVIDERS: ATTEND Internal Medicine
DX: Z00.00 Encounter for general adult medical examination without abnormal findings (principal); E03.9 Hypothyroidism, unspecified; M25.552 Pain in left hip
CPT/HCPCS: 36415; 81001; 84443; 84550; 85652; 86431

== ENCOUNTER → 2021-08-23 | Outpatient (CLI) | payer BC ==
[2021-08-23 17:08] LABS: Hepatitis A Ab IgM Negative
[2021-08-23 17:10] LABS: Hepatitis B Core IgM Negative
[2021-08-23 17:11] LABS: Hepatitis C Antibody Negative (Negative)
[2021-08-24 08:07] LABS: RPR Non Reactive (Non Reactive)
== END | disposition home or self-care (01) ==
LOC: LAB 12:04
PROVIDERS: ATTEND Obstetrics & Gynecology
DX: Z72.51 High risk heterosexual behavior (principal)
CPT/HCPCS: 36415; 80074; 86592; 86695; 86696; 86703

== ENCOUNTER → 2021-12-13 | Outpatient (CLI) | payer BC ==
[2021-12-13 11:40] LABS: Urine Blood TRACE /uL (Negative)
== END | disposition home or self-care (01) ==
LOC: LAB 10:29
PROVIDERS: ATTEND Internal Medicine Cardiovascular Disease
DX: N39.0 Urinary tract infection, site not specified (principal)
CPT/HCPCS: 81003; 87086

== ENCOUNTER → 2021-12-15 | Outpatient (CLI) | payer BC | END | disposition home or self-care (01) | LOC: LAB 10:46 | PROVIDERS: ATTEND Obstetrics & Gynecology | DX: N89.8 Other specified noninflammatory disorders of vagina (principal) | CPT/HCPCS: 86695; 86696 ==

== ENCOUNTER → 2022-01-03 | Outpatient (CLI) | payer BC | END | disposition home or self-care (01) | LOC: Rad HDHVI 08:59 | PROVIDERS: ATTEND Internal Medicine Cardiovascular Disease | DX: R00.1 Bradycardia, unspecified (principal); R06.02 Shortness of breath | CPT/HCPCS: 93306 ==

== ENCOUNTER 2022-01-16 14:57 | Emergency (ER) | payer BC ==
[~2022-01-16] VITALS: Ht 170.2 cm; Wt 90.7 kg
[2022-01-16] MEDS ORDERED: methylPREDNISolone SOD SUCC 125 MG/2 ML VL IM ONE (15:30)
[2022-01-16] MEDS ORDERED: diphenhdrAMINE HCL 50 MG/1 ML VL IM ONE (15:30)
[2022-01-16] MEDS ORDERED: methylPREDNISolone SOD SUCC 125 MG/2 ML VL IV ONE (16:00)
[2022-01-16] MEDS ORDERED: diphenhdrAMINE HCL 50 MG/1 ML VL IV ONE ×2 (16:00→18:30)
[2022-01-16 18:28] VITALS: BP 115/68
== END 2022-01-16 19:02 | disposition home or self-care (01) ==
LOC: ER 14:57
DX: L50.0 Allergic urticaria (principal); I10 Essential (primary) hypertension; I48.91 Unspecified atrial fibrillation; Z86.73 Personal history of transient ischemic attack (TIA), and cerebral infarction without residual deficits
CPT/HCPCS: 93005; 96374; 96375; 99284; J1200; J2930

== ENCOUNTER → 2022-01-23 | Outpatient (CLI) | payer BC ==
[2022-01-23 14:15] LABS: Free T3 4.95 pg/mL (2.3-4.2); Free T4 (Free Thyroxine) 1.82 ng/dL (0.89-1.76)
== END | disposition home or self-care (01) ==
LOC: LAB 12:36
PROVIDERS: ATTEND Internal Medicine
DX: E04.1 Nontoxic single thyroid nodule (principal)
CPT/HCPCS: 36415; 84439; 84443; 84481

== ENCOUNTER → 2022-02-14 | Outpatient (CLI) | payer BC | END | disposition home or self-care (01) | LOC: LAB 09:00 | PROVIDERS: ATTEND Internal Medicine | DX: E03.9 Hypothyroidism, unspecified (principal); I48.0 Paroxysmal atrial fibrillation | CPT/HCPCS: 36415; 84443; 85652; 86038 ==

== ENCOUNTER → 2022-02-28 | Outpatient (CLI) | payer BC ==
[~2022-02-28] MED LIST changes: +FLEC1TAB PO
== END | disposition home or self-care (01) ==
LOC: XY 07:13
PROVIDERS: ATTEND Internal Medicine
DX: E04.1 Nontoxic single thyroid nodule (principal); E03.9 Hypothyroidism, unspecified
CPT/HCPCS: 78014; A9516

== ENCOUNTER 2022-03-15 19:53 | Inpatient (IN) | payer BC ==
[~2022-03-15] VITALS: Ht 170.2 cm; Wt 53.7 kg
[~2022-03-15 19:53] MED LIST changes: -FLEC1TAB PO
[2022-03-15 23:40] LABS: Basophils # (auto) 0 10 ^3/uL (0-0.2); Basophils % (auto) 0.3 % (0.0-2.0); Eosinophils # (auto) 0.1 10 ^3/uL (0-0.8); Eosinophils % (auto) 1.5 % (0.0-7.0); Hematocrit 41.2 % (36.0-46.0); Hemoglobin 14.1 g/dL (12.2-16.2); Lymphocytes # (auto) 3.5 10 ^3/uL (0.4-5.4); Lymphocytes % (auto) 46.7 % (10.0-50.0); Mean Corpuscular Hemoglobin 32.1 pg (28.0-32.0); Mean Corpuscular Hgb Conc. 34.1 g/dL (32.0-36.0); Mean Corpuscular Volume 94.1 fL (80.0-100.0); Monocytes # (auto) 0.5 10 ^3/uL (0-1.3); Neutrophils # (auto) 3.3 10 ^3/uL (1.6-8.6); Neutrophils % (auto) 44.5 % (37.0-80.0); Nucleated Red Blood Cells % 0.1 %; Red Blood Cells 4.38 10^6/uL (4.0-5.20); Red Cell Distribution Width 12.7 % (11.8-14.3); White Blood Cell 7.4 10^3/uL (4.4-10.8)
[2022-03-16 00:13] LABS: Albumin 3.7 g/dL (3.4-5.0); BUN/Creatinine Ratio 16.7; Calcium 8.6 mg/dL (8.5-10.1); Potassium 4.1 mmol/L (3.5-5.1)
[2022-03-16 00:15] LABS: Bilirubin, Total 0.4 mg/dL (0.2-1.0); Total Protein 7.2 g/dL (6.4-8.2)
[2022-03-16] MEDS ORDERED: diphenhdrAMINE HCL 50 MG/1 ML VL IV ONE (01:15)
[2022-03-16] MEDS ORDERED: methylPREDNISolone SOD SUCC 125 MG/2 ML VL IV ONE (01:15)
[2022-03-16] MEDS ORDERED: MORPHINE SULFATE INJ 2 MG/ml SYRG IV PRN (03:15)
[2022-03-16] MEDS ORDERED: DOCUSATE SOD 100 MG CAP PO PRN (03:15)
[2022-03-16] MEDS ORDERED: NITROGLYCERIN 0.4 MG SL TAB SL PRN (03:15)
[2022-03-16] MEDS ORDERED: HYDROcodone-ACET 5/325MG TAB PO PRN (03:15)
[2022-03-16] MEDS: SODIUM CHLORIDE 0.9% 1,000 ML IV SCH ×2 (04:49→19:55)
[2022-03-16 05:28] LABS: Basophils # (auto) 0 10 ^3/uL (0-0.2); Basophils % (auto) 0.1 % (0.0-2.0); Eosinophils # (auto) 0.1 10 ^3/uL (0-0.8); Eosinophils % (auto) 1.1 % (0.0-7.0); Hematocrit 39.4 % (36.0-46.0); Hemoglobin 13.7 g/dL (12.2-16.2); Lymphocytes # (auto) 1.8 10 ^3/uL (0.4-5.4); Lymphocytes % (auto) 26.6 % (10.0-50.0); Mean Corpuscular Hemoglobin 32.6 pg (28.0-32.0); Mean Corpuscular Hgb Conc. 34.8 g/dL (32.0-36.0); Mean Corpuscular Volume 93.5 fL (80.0-100.0); Monocytes # (auto) 0.3 10 ^3/uL (0-1.3); Monocytes % (auto) 3.8 % (0.0-12.0); Neutrophils # (auto) 4.7 10 ^3/uL (1.6-8.6); Neutrophils % (auto) 68.4 % (37.0-80.0); Red Blood Cells 4.21 10^6/uL (4.0-5.20); Red Cell Distribution Width 12.5 % (11.8-14.3); White Blood Cell 6.8 10^3/uL (4.4-10.8)
[2022-03-16 05:46] LABS: Potassium 4.4 mmol/L (3.5-5.1)
[2022-03-16 05:51] LABS: Albumin 3.9 g/dL (3.4-5.0); BUN/Creatinine Ratio 15.4; Calcium 8.9 mg/dL (8.5-10.1)
[2022-03-16 05:54] LABS: Bilirubin, Total 0.6 mg/dL (0.2-1.0); Total Protein 7.4 g/dL (6.4-8.2)
[2022-03-16] MEDS: ONDANSETRON HCL 4 MG/2 ML VIAL IV PRN ×2 (06:59→20:57)
[2022-03-16] MEDS ORDERED: IPRATROPIUM BROM 0.5 MG/2.5ML INH SOL NEB PRN (10:00)
[2022-03-16] MEDS ORDERED: ALBUTEROL SULF 2.5 MG/0.5ML(0.5%) NEB SOLN NEB PRN (10:00)
[2022-03-16 10:34] VITALS: BP 147/87
[2022-03-16 13:20] VITALS: BP 132/85
[2022-03-16] MEDS ORDERED: FLEC1TAB PO (14:23)
[2022-03-16] MEDS: ACETAMINOPHEN 325 MG TAB PO PRN ×2 (14:28→20:44)
[2022-03-16] MEDS: methylPREDNISolone SOD SUCC 40 MG/ML VL IV SCH ×2 (14:29→20:45)
[2022-03-16] MEDS: diphenhdrAMINE HCL 50 MG/1 ML VL IV PRN ×2 (14:31→20:44)
[2022-03-16 17:00] VITALS: BP 129/85
[2022-03-16 22:00] VITALS: BP 133/92
[2022-03-17] MEDS: diphenhdrAMINE HCL 50 MG/1 ML VL IV PRN ×4 (02:15→21:24)
[2022-03-17 05:08] VITALS: BP 104/66
[2022-03-17 05:23] LABS: Basophils # (auto) 0 10 ^3/uL (0-0.2); Basophils % (auto) 0.3 % (0.0-2.0); Eosinophils # (auto) 0 10 ^3/uL (0-0.8); Hematocrit 39.1 % (36.0-46.0); Hemoglobin 13.1 g/dL (12.2-16.2); Lymphocytes # (auto) 1.4 10 ^3/uL (0.4-5.4); Lymphocytes % (auto) 11.4 % (10.0-50.0); Mean Corpuscular Hemoglobin 31.8 pg (28.0-32.0); Mean Corpuscular Hgb Conc. 33.6 g/dL (32.0-36.0); Mean Corpuscular Volume 94.6 fL (80.0-100.0); Monocytes # (auto) 0.5 10 ^3/uL (0-1.3); Monocytes % (auto) 4.2 % (0.0-12.0); Neutrophils # (auto) 10.1 10 ^3/uL (1.6-8.6); Neutrophils % (auto) 84.1 % (37.0-80.0); Red Blood Cells 4.13 10^6/uL (4.0-5.20); Red Cell Distribution Width 12.7 % (11.8-14.3); White Blood Cell 12.1 10^3/uL (4.4-10.8)
[2022-03-17 05:37] LABS: Albumin 3.3 g/dL (3.4-5.0); BUN/Creatinine Ratio 25.8; Calcium 8.3 mg/dL (8.5-10.1)
[2022-03-17 05:39] LABS: Bilirubin, Total 0.3 mg/dL (0.2-1.0); Total Protein 6.6 g/dL (6.4-8.2)
[2022-03-17] MEDS: methylPREDNISolone SOD SUCC 40 MG/ML VL IV SCH (06:09)
[2022-03-17 09:00] VITALS: BP 112/66
[2022-03-17] MEDS: SODIUM CHLORIDE 0.9% 1,000 ML IV SCH ×2 (12:35→21:24)
[2022-03-17 13:00] VITALS: BP 128/76
[2022-03-17 17:00] VITALS: BP 131/78
[2022-03-17 22:00] VITALS: BP 140/77
[2022-03-17] MEDS ORDERED: RIVAROXABAN 20 MG TAB PO SCH (22:00)
[2022-03-17] MEDS ORDERED: MAGNESIUM OXIDE 400 MG TAB PO SCH (22:00)
[2022-03-18] MEDS: diphenhdrAMINE HCL 50 MG/1 ML VL IV PRN (03:56)
[2022-03-18 05:00] VITALS: BP 128/76
[2022-03-18 09:33] VITALS: BP 115/71
[2022-03-18 12:13] VITALS: BP 115/71
[2022-03-18] MEDS ORDERED: METOPROLOL SUCCINATE 25 MG PO SCH (22:00)
== END 2022-03-18 13:34 | disposition home or self-care (01) | DRG 607 ==
LOC: ER 19:53 → EEVIPCON 03-16 03:06 → TELE 03-16 03:06 → TELE-CENTR 03-16 13:11
PROVIDERS: ADMIT Nurse Practitioner Family; ATTEND Internal Medicine
DX: R22.0 Localized swelling, mass and lump, head (principal); I48.92 Unspecified atrial flutter; E04.9 Nontoxic goiter, unspecified; E06.3 Autoimmune thyroiditis; I48.91 Unspecified atrial fibrillation; Z20.822 Contact with and (suspected) exposure to COVID-19; R16.0 Hepatomegaly, not elsewhere classified; E05.90 Thyrotoxicosis, unspecified without thyrotoxic crisis or storm; D72.829 Elevated white blood cell count, unspecified; Z80.3 Family history of malignant neoplasm of breast; T46.2X5A Adverse effect of other antidysrhythmic drugs, initial encounter; Y92.9 Unspecified place or not applicable; D18.09 Hemangioma of other sites
CPT/HCPCS: 36415; 70491; 71260; 80053; 84443; 84484; 85025; 87426; 96361; 96374; 96375; G0378; J2405

== ENCOUNTER → 2022-04-04 | Outpatient (CLI) | payer BC ==
[~2022-04-04] MED LIST changes: -ASPI-543 PO; -LEVO125T7 PO
[2022-04-04 12:14] LABS: Free T4 (Free Thyroxine) 0.94 ng/dL (0.89-1.76); T3 Total 0.99 ng/mL (0.60-1.81)
== END | disposition home or self-care (01) ==
LOC: LAB 08:09
PROVIDERS: ATTEND Internal Medicine Cardiovascular Disease
DX: E03.9 Hypothyroidism, unspecified (principal)
CPT/HCPCS: 36415; 84439; 84443; 84480

== ENCOUNTER → 2022-05-02 | Outpatient (CLI) | payer BC ==
[2022-05-02 11:19] LABS: Cholesterol 177 mg/dL (< 200); HDL Cholesterol 42 mg/dL (40-59); LDL Cholesterol 128 mg/dL (< 100); Triglycerides 92 mg/dL (< 150)
[2022-05-02 11:20] LABS: Free T4 (Free Thyroxine) 1.13 ng/dL (0.89-1.76); T3 Total 0.83 ng/mL (0.60-1.81)
== END | disposition home or self-care (01) ==
LOC: LAB 09:44
PROVIDERS: ATTEND Internal Medicine
DX: E03.9 Hypothyroidism, unspecified (principal); R73.03 Prediabetes
CPT/HCPCS: 36415; 80061; 82043; 83036; 84439; 84443; 84480

== ENCOUNTER → 2022-05-29 | Outpatient (CLI) | payer BC ==
[2022-05-29 09:17] LABS: Calcium 8.6 mg/dL (8.5-10.1); Potassium 4.2 mmol/L (3.5-5.1)
[2022-05-29 09:22] LABS: BUN/Creatinine Ratio 26.5; Bilirubin, Total 0.3 mg/dL (0.2-1.0); Total Protein 7.4 g/dL (6.4-8.2)
[2022-05-29 09:42] LABS: Free T3 2.82 pg/mL (2.3-4.2); Free T4 (Free Thyroxine) 0.94 ng/dL (0.89-1.76)
== END | disposition home or self-care (01) ==
LOC: LAB 08:41
PROVIDERS: ATTEND Internal Medicine Endocrinology, Diabetes & Metabolism
DX: E03.9 Hypothyroidism, unspecified (principal)
CPT/HCPCS: 36415; 80053; 84439; 84443; 84481; 86376; 86800

== ENCOUNTER → 2022-07-13 | Outpatient (CLI) | payer BC ==
[2022-07-13 09:46] LABS: Free T4 (Free Thyroxine) 1.11 ng/dL (0.89-1.76)
[2022-07-13 09:47] LABS: Free T3 3.14 pg/mL (2.3-4.2)
== END | disposition home or self-care (01) ==
LOC: LAB 08:27
DX: E06.3 Autoimmune thyroiditis (principal)
CPT/HCPCS: 36415; 84439; 84443; 84445; 84481; 86376; 86800

== ENCOUNTER → 2022-08-21 | Outpatient (CLI) | payer BC ==
[2022-08-21 10:44] LABS: Basophils # (auto) 0.1 10 ^3/uL (0-0.2); Basophils % (auto) 0.8 % (0.0-2.0); Eosinophils # (auto) 0.1 10 ^3/uL (0-0.8); Eosinophils % (auto) 1.6 % (0.0-7.0); Hematocrit 40.1 % (36.0-46.0); Hemoglobin 13.6 g/dL (12.2-16.2); Lymphocytes # (auto) 2.4 10 ^3/uL (0.4-5.4); Lymphocytes % (auto) 38.9 % (10.0-50.0); Mean Corpuscular Volume 94.1 fL (80.0-100.0); Monocytes # (auto) 0.4 10 ^3/uL (0-1.3); Monocytes % (auto) 6.8 % (0.0-12.0); Neutrophils # (auto) 3.2 10 ^3/uL (1.6-8.6); Neutrophils % (auto) 51.9 % (37.0-80.0); Red Blood Cells 4.26 10^6/uL (4.0-5.20); Red Cell Distribution Width 13.3 % (11.8-14.3); White Blood Cell 6.2 10^3/uL (4.4-10.8)
[2022-08-21 11:42] LABS: Cholesterol 244 mg/dL (< 200); HDL Cholesterol 57 mg/dL (40-59); LDL Cholesterol 158 mg/dL (< 100); Triglycerides 107 mg/dL (< 150)
== END | disposition home or self-care (01) ==
LOC: LAB 10:16
PROVIDERS: ATTEND Internal Medicine
DX: Z12.11 Encounter for screening for malignant neoplasm of colon (principal); E04.1 Nontoxic single thyroid nodule
CPT/HCPCS: 36415; 80061; 84443; 85025

== ENCOUNTER → 2022-09-04 | Outpatient (CLI) | payer BC ==
[2022-09-04 16:47] LABS: Albumin 3.9 g/dL (3.4-5.0); Calcium 9.2 mg/dL (8.5-10.1); Potassium 4.3 mmol/L (3.5-5.1)
[2022-09-04 16:50] LABS: BUN/Creatinine Ratio 20.6 (10.0-20.0)
[2022-09-04 16:51] LABS: Bilirubin, Total 0.4 mg/dL (0.2-1.0); Total Protein 7.9 g/dL (6.4-8.2)
[2022-09-04 17:08] LABS: Free T3 2.98 pg/mL (2.3-4.2); Free T4 (Free Thyroxine) 1.48 ng/dL (0.89-1.76)
== END | disposition home or self-care (01) ==
LOC: LAB 14:41
PROVIDERS: ATTEND Registered Nurse
DX: E55.9 Vitamin D deficiency, unspecified (principal); E11.9 Type 2 diabetes mellitus without complications; E03.9 Hypothyroidism, unspecified; E89.2 Postprocedural hypoparathyroidism
CPT/HCPCS: 36415; 80053; 82306; 83970; 84439; 84443; 84481

== ENCOUNTER → 2022-10-24 | Outpatient (CLI) | payer BC ==
[2022-10-24 10:22] LABS: CRP High Sensitivity 0.18 mg/dL (< 0.3); Uric Acid 3.3 mg/dL (2.6-6.0)
== END | disposition home or self-care (01) ==
LOC: LAB 09:20
PROVIDERS: ATTEND Internal Medicine
DX: E55.9 Vitamin D deficiency, unspecified (principal); E78.5 Hyperlipidemia, unspecified; M25.50 Pain in unspecified joint
CPT/HCPCS: 36415; 82550; 84550; 85652; 86141

== ENCOUNTER → 2022-11-06 | Outpatient (CLI) | payer BC ==
[~2022-11-06] MED LIST changes: +CHOL20004 PO; +LEVO137T3 PO; +PANT40TA2 PO
[2022-11-07 05:08] LABS: RPR Non Reactive (Non Reactive)
== END | disposition home or self-care (01) ==
LOC: LAB 09:07
PROVIDERS: ATTEND Obstetrics & Gynecology
DX: Z20.2 Contact with and (suspected) exposure to infections with a predominantly sexual mode of transmission (principal)
CPT/HCPCS: 86592; 86701

== ENCOUNTER 2022-11-14 11:46 | Day surgery (SDC) | payer BC ==
[2022-11-12 08:03] LABS: Basophils # (auto) 0 10 ^3/uL (0-0.2); Basophils % (auto) 0.4 % (0.0-2.0); Eosinophils # (auto) 0.1 10 ^3/uL (0-0.8); Eosinophils % (auto) 1.3 % (0.0-7.0); Hemoglobin 13.3 g/dL (12.2-16.2); Lymphocytes # (auto) 2.9 10 ^3/uL (0.4-5.4); Lymphocytes % (auto) 45.6 % (10.0-50.0); Mean Corpuscular Hemoglobin 32.3 pg (28.0-32.0); Mean Corpuscular Hgb Conc. 33.3 g/dL (32.0-36.0); Monocytes # (auto) 0.5 10 ^3/uL (0-1.3); Monocytes % (auto) 7.7 % (0.0-12.0); Neutrophils # (auto) 2.9 10 ^3/uL (1.6-8.6); Red Blood Cells 4.12 10^6/uL (4.0-5.20); Red Cell Distribution Width 13.2 % (11.8-14.3); White Blood Cell 6.4 10^3/uL (4.4-10.8)
[2022-11-12 08:13] LABS: Urine Bacteria FEW /hpf (None Seen); Urine Blood 1+ /uL (Negative); Urine Mucus FEW (None Seen); Urine Specific Gravity 1.025 (1.001-1.035); Urine WBC 22 /hpf (0 - 5)
[2022-11-12 08:39] LABS: INR 1.18 (0.9-1.15); Partial Thromboplastin Time 40.7 SEC (24.5-34.5)
[2022-11-12 09:03] LABS: Potassium 3.9 mmol/L (3.5-5.1)
[2022-11-12 09:13] LABS: Albumin 3.7 g/dL (3.4-5.0); BUN/Creatinine Ratio 24.3 (10.0-20.0); Bilirubin, Total 0.2 mg/dL (0.2-1.0); Calcium 8.3 mg/dL (8.5-10.1); Total Protein 7.1 g/dL (6.4-8.2)
[~2022-11-14] VITALS: Ht 170.2 cm; Wt 90.7 kg
[~2022-11-14 11:46] MED LIST changes: -METO25TA93 PO
[2022-11-14] MEDS ORDERED: HYDROmorphone HCL 2 MG/ML VL/or syr IV PRN ×2 (12:45)
[2022-11-14] MEDS ORDERED: MORPHINE SULFATE INJ 2 MG/ml SYRG IV PRN (12:45)
[2022-11-14] MEDS ORDERED: METOCLOPRAMIDE HCL 5MG/ml INJ 2ml VIAL IV PRN (12:45)
[2022-11-14] MEDS ORDERED: PROPOFOL 10 MG/ML 20 ML IV ONE (12:46)
[2022-11-14] MEDS ORDERED: fentaNYL CITRATE 100 MCG/2 ML VL ONE (12:46)
[2022-11-14] MEDS ORDERED: MIDAZOLAM HCL 2MG/2ML 2ml VIAL (1mg/ml) ONE (12:46)
[2022-11-14] MEDS ORDERED: DexAMETHasone SOD PHOS 10MG/1ML VIAL INJ ONE (12:46)
[2022-11-14] MEDS ORDERED: METOCLOPRAMIDE HCL 5MG/ml INJ 2ml VIAL ONE (12:46)
[2022-11-14] MEDS ORDERED: SODIUM CHLORIDE LOCK 10 ML ONE (12:46)
[2022-11-14] MEDS ORDERED: ONDANSETRON HCL 4 MG/2 ML VIAL ONE (12:46)
[2022-11-14 14:45] VITALS: BP 131/79
== END 2022-11-14 15:15 | disposition home or self-care (01) ==
LOC: GI 11:46
PROVIDERS: ATTEND Internal Medicine Gastroenterology
DX: R19.5 Other fecal abnormalities (principal); K63.5 Polyp of colon; K29.90 Gastroduodenitis, unspecified, without bleeding; K21.00 Gastro-esophageal reflux disease with esophagitis, without bleeding; K44.9 Diaphragmatic hernia without obstruction or gangrene; I10 Essential (primary) hypertension; I48.91 Unspecified atrial fibrillation; Z79.899 Other long term (current) drug therapy; Z79.890 Hormone replacement therapy; K64.0 First degree hemorrhoids
CPT/HCPCS: 36415; 43239; 43450; 45385; 80053; 81001; 85025; 85610; 85730; J1100; J2250; J2405; J2704; J2765; J3010; J7030

== ENCOUNTER → 2022-12-04 | Outpatient (CLI) | payer BC ==
[2022-12-04 14:04] LABS: Urine Bacteria FEW /hpf (None Seen); Urine Blood Negative /uL (Negative); Urine WBC 15 /hpf (0 - 5)
[2022-12-04 14:11] LABS: Basophils # (auto) 0 10 ^3/uL (0-0.2); Basophils % (auto) 0.4 % (0.0-2.0); Eosinophils # (auto) 0.1 10 ^3/uL (0-0.8); Eosinophils % (auto) 1.2 % (0.0-7.0); Hematocrit 40.5 % (36.0-46.0); Hemoglobin 13.7 g/dL (12.2-16.2); Lymphocytes # (auto) 2.1 10 ^3/uL (0.4-5.4); Mean Corpuscular Hemoglobin 32.7 pg (28.0-32.0); Mean Corpuscular Hgb Conc. 33.8 g/dL (32.0-36.0); Monocytes # (auto) 0.4 10 ^3/uL (0-1.3); Monocytes % (auto) 8.3 % (0.0-12.0); Neutrophils # (auto) 2.6 10 ^3/uL (1.6-8.6); Neutrophils % (auto) 50.1 % (37.0-80.0); Nucleated Red Blood Cells % 0.4 %; Red Blood Cells 4.18 10^6/uL (4.0-5.20); Red Cell Distribution Width 13.2 % (11.8-14.3); White Blood Cell 5.3 10^3/uL (4.4-10.8)
[2022-12-04 14:28] LABS: Albumin 3.7 g/dL (3.4-5.0); Calcium 8.8 mg/dL (8.5-10.1)
[2022-12-04 14:31] LABS: BUN/Creatinine Ratio 17.9 (10.0-20.0); Bilirubin, Total 0.4 mg/dL (0.2-1.0); Total Protein 7.7 g/dL (6.4-8.2)
== END | disposition home or self-care (01) ==
LOC: LAB 13:37
PROVIDERS: ATTEND Internal Medicine Gastroenterology
DX: K21.9 Gastro-esophageal reflux disease without esophagitis (principal); R13.19 Other dysphagia
CPT/HCPCS: 36415; 80053; 81001; 82306; 83036; 84443; 85025; 86200; 86256; 87086

== ENCOUNTER → 2023-03-06 | Outpatient (CLI) | payer BC ==
[2023-03-06 09:46] LABS: Anion Gap 4 (5-15); Carbon Dioxide 31 mmol/L (20-30); Chloride 106 mmol/L (98-107); Potassium 3.8 mmol/L (3.5-5.1); Sodium 141 mmol/L (136-145)
[2023-03-06 09:47] LABS: Calcium 9.6 mg/dL (8.5-10.1)
[2023-03-06 09:49] LABS: Creatinine, Urine 144.71 mg/dL (30.0-125.0)
[2023-03-06 09:52] LABS: BUN/Creatinine Ratio 10.3 (10.0-20.0); Blood Urea Nitrogen 8 mg/dL (9-23); Glucose 92 mg/dL (74-106)
== END | disposition home or self-care (01) ==
LOC: LAB 09:12
PROVIDERS: ATTEND Internal Medicine
DX: E78.5 Hyperlipidemia, unspecified (principal); R73.03 Prediabetes
CPT/HCPCS: 36415; 80048; 82043; 82306; 82570; 83036; 84443

== ENCOUNTER → 2023-05-07 | Outpatient (CLI) | payer BC ==
[2023-05-07 11:10] LABS: Free T4 (Free Thyroxine) 1.72 ng/dL (0.89-1.76)
== END | disposition home or self-care (01) ==
LOC: LAB 09:28
PROVIDERS: ATTEND Internal Medicine
DX: E06.3 Autoimmune thyroiditis (principal); E89.0 Postprocedural hypothyroidism
CPT/HCPCS: 36415; 82306; 82310; 84439; 84443; 84481; 86376

== ENCOUNTER → 2023-06-12 | Outpatient (CLI) | payer BC ==
[2023-06-12 10:40] LABS: Triglycerides 81 mg/dL (< 150)
[2023-06-12 10:41] LABS: LDL Cholesterol 116 mg/dL (< 100)
[2023-06-12 10:42] LABS: Cholesterol 173 mg/dL (< 200); HDL Cholesterol 40 mg/dL (40-59)
== END | disposition home or self-care (01) ==
LOC: LAB 09:36
PROVIDERS: ATTEND Internal Medicine
DX: E03.9 Hypothyroidism, unspecified (principal)
CPT/HCPCS: 36415; 80061; 84443; 86376

== ENCOUNTER → 2023-10-29 | Outpatient (CLI) | payer BC ==
[2023-10-29 13:30] LABS: Free T3 3.26 pg/mL (2.3-4.2); Free T4 (Free Thyroxine) 1.61 ng/dL (0.89-1.76)
== END | disposition home or self-care (01) ==
LOC: LAB 13:08
PROVIDERS: ATTEND Internal Medicine Cardiovascular Disease
DX: Z13.89 Encounter for screening for other disorder (principal); R76.0 Raised antibody titer
CPT/HCPCS: 36415; 84439; 84443; 84481; 86376

== ENCOUNTER → 2023-11-06 | Outpatient (CLI) | payer BC ==
[~2023-11-06] MED LIST changes: +FAMO-12 PO; +LEVO150T10 PO; +SUCR1TAB31 PO
[2023-11-06 09:00] VITALS: BP 139/84; PULSE 79; RESP 20; O2SAT 99
[2023-11-06 09:15] VITALS: BP 140/87; PULSE 75; RESP 18; O2SAT 99
== END | disposition home or self-care (01) ==
LOC: Rad HDHVI 08:51
PROVIDERS: ATTEND Internal Medicine Cardiovascular Disease
DX: Z01.818 Encounter for other preprocedural examination (principal); R07.89 Other chest pain; I48.0 Paroxysmal atrial fibrillation
CPT/HCPCS: 71046; 93005; G0463

== ENCOUNTER 2023-11-07 09:07 | Day surgery (SDC) | payer BC ==
[2023-11-06 10:45] LABS: Basophils # (auto) 0 10 ^3/uL (0-0.2); Basophils % (auto) 0.4 % (0.0-2.0); Eosinophils # (auto) 0.1 10 ^3/uL (0-0.8); Eosinophils % (auto) 1.4 % (0.0-7.0); Hematocrit 39.8 % (36.0-46.0); Hemoglobin 13.5 g/dL (12.2-16.2); Lymphocytes # (auto) 2.4 10 ^3/uL (0.4-5.4); Lymphocytes % (auto) 41.8 % (10.0-50.0); Mean Corpuscular Hemoglobin 33.7 pg (28.0-32.0); Mean Corpuscular Volume 99.1 fL (80.0-100.0); Monocytes # (auto) 0.5 10 ^3/uL (0-1.3); Monocytes % (auto) 8.3 % (0.0-12.0); Neutrophils # (auto) 2.7 10 ^3/uL (1.6-8.6); Neutrophils % (auto) 48.1 % (37.0-80.0); Red Blood Cells 4.02 10^6/uL (4.0-5.20); Red Cell Distribution Width 12.6 % (11.8-14.3); White Blood Cell 5.6 10^3/uL (4.4-10.8)
[2023-11-06 11:08] LABS: INR 0.99 (0.9-1.15); Prothrombin Time 10.5 sec (9.3-11.8)
[2023-11-06 11:09] LABS: Chloride 110 mmol/L (98-107); Potassium 4.2 mmol/L (3.5-5.1); Sodium 143 mmol/L (136-145)
[2023-11-06 11:10] LABS: Anion Gap 4 (5-15); Calcium 9.4 mg/dL (8.5-10.1); Carbon Dioxide 29 mmol/L (20-30)
[2023-11-06 11:15] LABS: BUN/Creatinine Ratio 18.3 (10.0-20.0); Blood Urea Nitrogen 11 mg/dL (9-23); Glucose 90 mg/dL (74-106)
[~2023-11-07] VITALS: Ht 170.2 cm; Wt 83.0 kg
[~2023-11-07 09:07] MED LIST changes: -CHOL20004 PO; -LEVO137T3 PO; -PANT40TA2 PO
[2023-11-07] MEDS ORDERED: SODIUM CHL 0.9% 0 ML ONE (10:47)
[2023-11-07] MEDS ORDERED: MIDAZOLAM HCL 2MG/2ML 2ml VIAL (1mg/ml) ONE (10:47)
[2023-11-07] MEDS ORDERED: ANGIOMAX 250 MG VIAL IV ONE (10:47)
[2023-11-07] MEDS ORDERED: fentaNYL CITRATE 100 MCG/2 ML VL ONE (10:47)
[2023-11-07] MEDS ORDERED: HEPARIN SODIUM (PORCINE) 5000 UNITS/ML 1ML VIAL ONE (10:48)
[2023-11-07] MEDS ORDERED: VERAPAMIL 2.5MG/ML INJ 2ML VIAL IV ONE (10:48)
[2023-11-07] MEDS ORDERED: IODIXANOL 320MG/ML 100ML BTL IV ONE (11:17)
[2023-11-07] MEDS: ONDANSETRON HCL 4 MG/2 ML VIAL ONE (12:14)
[2023-11-07] MEDS: ONDANSETRON HCL 4 MG/2 ML VIAL IV PRN (12:15)
== END 2023-11-07 13:35 | disposition home or self-care (01) ==
LOC: CATH 09:07
PROVIDERS: ATTEND Internal Medicine Cardiovascular Disease
DX: R07.9 Chest pain, unspecified (principal); I48.91 Unspecified atrial fibrillation; I10 Essential (primary) hypertension; E89.0 Postprocedural hypothyroidism
CPT/HCPCS: 36415; 80048; 85025; 85610; 85730; 93458; C1894; J1644; J2250; J2405; J3010; J7030; Q9967; 99152

== ENCOUNTER → 2024-02-18 | Outpatient (CLI) | payer BC ==
[2024-02-18 09:30] LABS: Uric Acid 2.9 mg/dL (3.1-7.8)
== END | disposition home or self-care (01) ==
LOC: LAB 08:16
PROVIDERS: ATTEND Internal Medicine
DX: I10 Essential (primary) hypertension (principal); E66.9 Obesity, unspecified; I48.91 Unspecified atrial fibrillation; E03.9 Hypothyroidism, unspecified
CPT/HCPCS: 36415; 80061; 83036; 84443; 84550; 86376

== ENCOUNTER → 2024-04-06 | Outpatient (CLI) | payer BC ==
[2024-04-06 11:49] LABS: Free T3 3.32 pg/mL (2.3-4.2); Free T4 (Free Thyroxine) 1.18 ng/dL (0.89-1.76)
[2024-04-06 11:50] LABS: T3 Total 1.19 ng/mL (0.60-1.81)
== END | disposition home or self-care (01) ==
LOC: LAB 08:37
PROVIDERS: ATTEND Internal Medicine
DX: E03.9 Hypothyroidism, unspecified (principal)
CPT/HCPCS: 36415; 84439; 84443; 84480; 84481; 86376

== ENCOUNTER 2024-04-27 21:58 | Emergency (ER) | payer BC ==
[~2024-04-27] VITALS: Ht 170.2 cm; Wt 81.3 kg
--- NOTE | 2024-04-27 22:18 | ED.PDOC ---
Musculoskeletal HPI Comments HPI: Poor Historian. 58-year-old female presents to the emergency department for evaluation of right toes pain status post a dumbbell fell on her toes at the store approximately an hour prior to arrival. Patient complains of pain at the base of her 2nd 3rd and 4th toes on the right foot. Patient is neurovascularly intact in the affected extremity. Minimal swelling is noted. The area is tender to palpation. Minimal erythema. Pedal pulses palpable. Past Medcial History: Atrial fibrillation on Xarelto, thyroid disease Past Surgical History: To chronic stents, thyroid resection, REVIEW OF SYSTEMS: CONSTITUTIONAL: Denies acute: fever, diaphoresis, chills, generalized weakness. HEAD: Denies acute: headache, photophobia Eyes: Denies acute: Double vision, vision loss, eye pain, eye discharge. EARS: Denies acute: tinnitus, hearing loss, ear discharge, ear pain, THROAT: Denies acute: sore throat, swelling, difficulty swallowing , pain with swallowing, change in voice. NECK: Denies acute: neck pain, neck swelling, stiff neck. HEART: Denies acute : chest pain, palpitations, LUNGS: Denies acute: SOB, wheezing, cough, hemoptysis ABDOMEN: Denies acute: abdominal pain, Nausea, Vomiting, diarrhea, melena , hematemesis, hematochezia SKIN: Denies acute: rash, redness, lesions, itchiness. EXTREMITIES: Denies acute: calf pain, numbness, tingling, weakness, Denies acute: Low back pain. Neuro: Denies acute: focal neurological deficit, motor or sensory focal neurological deficit, tremors, seizure like activity, confusion, dizziness, change in mental status, loss of bowel or bladder function, cauda equina like symptoms. : Denies acute: dysuria, hematuria, flank pain, increase in urinary frequency. PSYCH: Denies acute: hallucination, suicidal ideation, homicidal ideation. FEMALE: Denies acute: abnormal vaginal bleeding, foul odor, unusual discharge. PHYSICAL EXAM: General: no acute distress, awake and alert. Head: normocephalic, atraumatic. Neck: supple, trachea is midline, no swelling. Throat: Normal phonation. Eyes:, no erythema, no purulent discharge, no proptosis, no icterus. Heart: regular rate, regular rhythm, no significant murmur appreciated. Lungs: no apparent respiratory distress, Able to speak in full sentences. No wheezing, no rhonchi, no crackles. No stridors Clear to auscultation bilaterally. Abdomen: non tender to palpation, non distended, soft, no guarding, no rebound, + bowel sounds. Neuro: Awake, Alert, oriented to name, self, situation, follows commands GCS=15. Speech is normal. Skin: no petechia, no purpura, no cyanosis, non-pale, not jaundice. Lower extremities: --no - Pitting edema no deformity, no calf TTP. Makes eye contact. moves all four extremities. Face: no apparent facial droop. Chief Complaint: Lower Extremity Time Seen by MD: 22:04 Primary Care Provider: Dr. Lyons Reviewed Notes: Nurses Notes, Medications, Allergies Allergies: Uncoded Allergies: adhesive tape (Adverse Reaction, Unknown, Swelling, 11/06/23) Home Meds Reported Medications Famotidine (Famotidine) 20 Mg Tab, 40 MG PO DAILY for gerd, MG 11/06/23 Sucralfate (CARAFATE) 1 Gm Tab, 1 GM PO DAILY@BREAKFAST for gerd, TAB 11/06/23 Levothyroxine Sodium (Levothyroxine Sodium) 150 Mcg Tab, 150 MCG PO QAM for low thyroid for 30 Days 11/06/23 Magnesium Oxide (MAGNESIUM OXIDE) 400 Mg Tab, 1 TAB PO HS, #60 TAB 5 Refills 02/18/21 Alprazolam (Xanax) 0.25 Mg Tb, 1 TAB PO DAILY PRN for FOR INSOMNIA, #30 TAB 02/18/21 Rivaroxaban (XARELTO) 20 Mg Tab, 1 TAB PO HS, #30 TAB 11 Refills 02/18/21 Information Source: Patient Mode of Arrival: Wheelchair Location: Right Past Medical History PAST MEDICAL HISTORY: AFIB, Thyroid Surgical History: Unknown 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 Aquiles taping will be applied to the affected toes and patient will be given hard shoe to wear with Ob evaluated by Orthopedics/Podiatry in outpatient follow up.) Reevaluation 1ST: Unchanged Patient Education/Counseling: Diagnosis, Treatment Family Education/Counseling: No Family Present Departure 1 Departure Time of Disposition: 00:22 Impression: Primary Impression: Contusion of toe of right foot Disposition: 01 HOME / SELF CARE / HOMELESS Condition: Stable Additional Instructions: Additional discharge instructions: You MUST follow-up with your primary care/family doctor in 1 to 2 days. If you are unable to see your primary care/family doctor, please return to our emergency room for re-assessment and re-evaluation in 1 to 2 days. Return to the emergency room here in our facility or to the nearest ER [facility] if your symptoms change or worsen. CONSULTATIONS: you MUST Follow-up for consultation as soon as possible with: Dr orthopedic surgery/Podiatry in 1-2 days. Please call for appointment. You MUST call the consultants office yourself to make an appointment. You may need to arrange that through your insurance and/or your primary/family doctor. If you are unable to see the design and sales consultant in 1 to 2 days, you must return to our emergency room (or any other ER of your choice) for re-assessment and re- evaluation. Adequate fluid hydration. Below is a copy of your radiological report for follow up: [place] [id number] Ph: [phone] DIAGNOSTIC IMAGING Diagnostic Imaging Report : [id number] Signed PATIENT: GEN SALAS ACCT: [id number] UNIT: [id number] : 1965 LOC: ER ROOM / BED: / AGE / SEX: 58 / F ADM STATUS: REG ER SERVICE 08 ORDERING PHYSICIAN: ANA VALDEZ DO PROCEDURE(s): RFOOT - R FOOT 3 VIEW XRAY REASON: RIGHT FOOT SWELLING/PAIN, CRUSH INJURY ORDER NUMBER(s): [id number], ACCESSION NUMBER(s): [id number] XY R FOOT 3 VIEW XRAY, INDICATION: RIGHT FOOT SWELLING/PAIN, CRUSH INJURY TECHNICAL DATA: Frontal, oblique and lateral views were obtained of the right foot. COMPARISON: None FINDINGS: No fracture is identified. Joint spaces are maintained. Alignment is anatomic. The hallux sesamoids appear normal. Soft tissues are within normal limits. IMPRESSION: No acute fracture or dislocation of the right foot. Large calcaneal enthesophyte ATED BY: JOSE A CUELLAR DO DICTATED DATE/TIME: 04/27/242356 SIGNED BY: JOSE A CUELLAR DO SIGNED DATE/TIME: 04/27/242356 CC: Discharged With: Self ANA VALDEZ DO Apr 27, 2024 22:18
--- NOTE | 2024-04-28 | DVH ---
XY R FOOT 3 VIEW XRAY, INDICATION: RIGHT FOOT SWELLING/PAIN, CRUSH INJURY TECHNICAL DATA: Frontal, oblique and lateral views were obtained of the right foot. COMPARISON: None FINDINGS: No fracture is identified. Joint spaces are maintained. Alignment is anatomic. The hallux sesamoids a ppear normal. Soft tissues are within normal limits. IMPRESSION: No acute fracture or dislocation of the right foot. Large calcaneal enthesophyte
[2024-04-28 03:25] VITALS: BP 140/72; PULSE 88; RESP 17; TEMP 98.5; O2SAT 96
[2024-04-28] MEDS: HYDROcodone-ACET 5/325MG TAB PO ONE (04:19)
== END 2024-04-28 04:21 | disposition home or self-care (01) ==
LOC: EEVIPCON 21:58 → ER 21:58
DX: S90.121A Contusion of right lesser toe(s) without damage to nail, initial encounter (principal); S90.31XA Contusion of right foot, initial encounter; M77.31 Calcaneal spur, right foot; E03.9 Hypothyroidism, unspecified; Z79.899 Other long term (current) drug therapy; I48.91 Unspecified atrial fibrillation; W23.0XXA Caught, crushed, jammed, or pinched between moving objects, initial encounter; Y93.89 Activity, other specified; Y92.89 Other specified places as the place of occurrence of the external cause; Y99.8 Other external cause status
CPT/HCPCS: 73630

== ENCOUNTER → 2024-05-05 | Outpatient (CLI) | payer BC ==
[2024-05-05 08:38] LABS: Albumin 4.6 g/dL (3.2-4.8); Alkaline Phosphatase 61 U/L (46-116); Bilirubin, Direct 0.2 mg/dL (<0.3); Bilirubin, Total 0.7 mg/dL (0.2-1.0); CRP High Sensitivity 0.05 mg/dL (<1.0); Total Protein 7.2 g/dL (5.7-8.2)
[2024-05-05 08:39] LABS: Alanine Aminotransferase < 9 U/L (7-40); Aspartate Aminotransferase 9 U/L (13-40)
[2024-05-05 09:21] LABS: Erythrocyte Sedimentation Rate 5 mm/hr (0-20)
[2024-05-05 11:34] LABS: T3 Total 0.97 ng/mL (0.60-1.81)
[2024-05-05 11:36] LABS: Free T3 3.55 pg/mL (2.3-4.2); Free T4 (Free Thyroxine) 1.48 ng/dL (0.89-1.76)
== END | disposition home or self-care (01) ==
LOC: LAB 08:03
PROVIDERS: ATTEND Internal Medicine
DX: E03.9 Hypothyroidism, unspecified (principal); M79.644 Pain in right finger(s)
CPT/HCPCS: 36415; 80076; 84439; 84443; 84480; 84481; 85652; 86141; 86376

== ENCOUNTER → 2024-06-12 | Outpatient (CLI) | payer BC ==
[2024-06-12 16:50] LABS: Free T3 3.04 pg/mL (2.3-4.2); T3 Total 0.96 ng/mL (0.60-1.81)
[2024-06-12 16:51] LABS: Free T4 (Free Thyroxine) 1.5 ng/dL (0.89-1.76)
== END | disposition home or self-care (01) ==
LOC: LAB 15:35
PROVIDERS: ATTEND Internal Medicine
DX: E03.9 Hypothyroidism, unspecified (principal)
CPT/HCPCS: 36415; 84439; 84443; 84480; 84481

== ENCOUNTER → 2024-06-24 | Outpatient (CLI) | payer BC | END | disposition home or self-care (01) | LOC: LAB 10:39 | PROVIDERS: ATTEND Internal Medicine | DX: N39.0 Urinary tract infection, site not specified (principal) | CPT/HCPCS: 87086 ==

== ENCOUNTER → 2024-08-14 | Outpatient (CLI) | payer BC ==
[2024-08-14 11:45] LABS: Basophils # (auto) 0 10 ^3/uL (0-0.2); Eosinophils # (auto) 0.1 10 ^3/uL (0-0.8); Eosinophils % (auto) 1.4 % (0.0-7.0); Hemoglobin 15.1 g/dL (12.2-16.2); Nucleated Red Blood Cells % 0.1 %; White Blood Cell 5.1 10^3/uL (4.4-10.8)
[2024-08-14 11:47] LABS: Basophils % (auto) 0.5 % (0.0-2.0); Hematocrit 44.3 % (36.0-46.0); Lymphocytes # (auto) 2.1 10 ^3/uL (0.4-5.4); Lymphocytes % (auto) 40.4 % (10.0-50.0); Mean Corpuscular Hemoglobin 33.9 pg (28.0-32.0); Mean Corpuscular Hgb Conc. 34.2 g/dL (32.0-36.0); Monocytes # (auto) 0.3 10 ^3/uL (0-1.3); Monocytes % (auto) 6.8 % (0.0-12.0); Neutrophils # (auto) 2.6 10 ^3/uL (1.6-8.6); Neutrophils % (auto) 50.9 % (37.0-80.0); Platelet Count (auto) 282 10^3/uL (140-450); Red Blood Cells 4.47 10^6/uL (4.0-5.20); Red Cell Distribution Width 12.6 % (11.8-14.3)
[2024-08-14 12:05] LABS: Free T3 2.69 pg/mL (2.3-4.2); Free T4 (Free Thyroxine) 1.65 ng/dL (0.89-1.76); T3 Total 0.84 ng/mL (0.60-1.81)
[2024-08-14 12:11] LABS: Creatinine, Urine 71.44 mg/dL (30.0-125.0)
[2024-08-14 12:15] LABS: Micro Albumin < 3.0 mg/L (<30.0)
[2024-08-14 12:16] LABS: Alanine Aminotransferase 15 U/L (7-40); Alkaline Phosphatase 58 U/L (46-116); Anion Gap 10 (5-15); BUN/Creatinine Ratio 13.5 (10.0-20.0); Blood Urea Nitrogen 10 mg/dL (9-23); Calcium 9.8 mg/dL (8.7-10.4); Carbon Dioxide 27 mmol/L (20-31); Chloride 105 mmol/L (98-107); Glucose 81 mg/dL (74-106); Potassium 4.5 mmol/L (3.5-5.1); Sodium 142 mmol/L (136-145); Total Protein 7.4 g/dL (5.7-8.2)
[2024-08-14 12:17] LABS: Aspartate Aminotransferase 14 U/L (13-40); Bilirubin, Total 0.6 mg/dL (0.2-1.0)
[2024-08-14 12:21] LABS: Albumin 4.8 g/dL (3.2-4.8)
== END | disposition home or self-care (01) ==
LOC: LAB 11:02
PROVIDERS: ATTEND Internal Medicine
DX: Z12.11 Encounter for screening for malignant neoplasm of colon (principal); I48.0 Paroxysmal atrial fibrillation; R73.03 Prediabetes
CPT/HCPCS: 36415; 80053; 82043; 82570; 83036; 84439; 84443; 84480; 84481; 85025

== ENCOUNTER → 2024-09-30 | Outpatient (CLI) | payer BC ==
[~2024-09-30] VITALS: Ht 170.2 cm; Wt 79.4 kg
[~2024-09-30] MED LIST changes: +ADENOSINE 67 MG in GIVE UN-DILUTED 0 ML IV ONE; +ADENOSINE 90 MG/30 ML INJ IV ONE
== END | disposition home or self-care (01) ==
LOC: Rad HDHVI 08:06
PROVIDERS: ATTEND Internal Medicine Cardiovascular Disease
DX: I49.1 Atrial premature depolarization (principal); R00.0 Tachycardia, unspecified; R42 Dizziness and giddiness; I10 Essential (primary) hypertension; I25.2 Old myocardial infarction; I48.0 Paroxysmal atrial fibrillation; R73.03 Prediabetes; R07.89 Other chest pain; Z82.49 Family history of ischemic heart disease and other diseases of the circulatory system
CPT/HCPCS: 78452; 93017; A9500; J0153

== ENCOUNTER → 2024-10-01 | Outpatient (CLI) | payer BC ==
[~2024-10-01] MED LIST changes: -ADENOSINE 67 MG in GIVE UN-DILUTED 0 ML IV ONE; -ADENOSINE 90 MG/30 ML INJ IV ONE
== END | disposition home or self-care (01) ==
LOC: Rad HDHVI 08:00
PROVIDERS: ATTEND Internal Medicine Cardiovascular Disease
DX: R07.89 Other chest pain (principal)
CPT/HCPCS: 93306

== ENCOUNTER 2024-10-21 09:24 | Outpatient (CLI) | payer BC ==
[2024-10-21 10:21] LABS: CRP High Sensitivity 0.08 mg/dL (<1.0)
[2024-10-21 10:24] LABS: Free T3 3.64 pg/mL (2.3-4.2); Free T4 (Free Thyroxine) 1.31 ng/dL (0.89-1.76); T3 Total 1.11 ng/mL (0.60-1.81)
[2024-10-21 11:03] LABS: Uric Acid 3.2 mg/dL (3.1-7.8)
[2024-10-21 11:33] LABS: Erythrocyte Sedimentation Rate 8 mm/hr (0-20)
[2024-10-22 09:07] LABS: Complement C3 151 mg/dL (82-167); Rheumatoid Arthritis Factor <10.0 IU/mL (<14.0)
[2024-10-22 10:07] LABS: Thyroid Peroxidase (TPO) Ab 28 IU/mL (0-34)
[2024-10-22 15:07] LABS: Anti-Nuclear Antibody Direct Negative (Negative); Anti-dsDNA Antibody <1 IU/mL (0-9); Antiscleroderma-70 Antibody <0.2 AI (0.0-0.9); RNP Antibody <0.2 AI (0.0-0.9); Sjogren's Anti-SS-A Antibody <0.2 AI (0.0-0.9); Sjogren's Anti-SS-B Antibody <0.2 AI (0.0-0.9); Smith Antibody <0.2 AI (0.0-0.9)
== END 2024-10-21 17:00 | disposition home or self-care (01) ==
LOC: LAB 09:24
PROVIDERS: ATTEND Internal Medicine
DX: E03.9 Hypothyroidism, unspecified (principal); M19.90 Unspecified osteoarthritis, unspecified site; R73.03 Prediabetes; Z98.890 Other specified postprocedural states
CPT/HCPCS: 36415; 82672; 83036; 84144; 84403; 84439; 84443; 84480; 84481; 84550; 85652; 86141; 86160; 86225; 86235; 86376; 86431

== ENCOUNTER 2024-12-29 08:05 | Outpatient (CLI) | payer BC ==
[2024-12-29 08:59] LABS: Free T3 2.57 pg/mL (2.3-4.2)
[2024-12-29 09:00] LABS: Free T4 (Free Thyroxine) 1.55 ng/dL (0.89-1.76)
== END 2024-12-29 17:00 | disposition home or self-care (01) ==
LOC: LAB 08:05
PROVIDERS: ATTEND Internal Medicine
DX: E03.9 Hypothyroidism, unspecified (principal)
CPT/HCPCS: 36415; 84439; 84443; 84480; 84481

== ENCOUNTER → 2025-03-30 | Outpatient (CLI) | payer BC ==
[2025-03-30 13:29] LABS: Alanine Aminotransferase 12 U/L (7-40); Albumin 4.3 g/dL (3.2-4.8); Alkaline Phosphatase 54 U/L (46-116); Anion Gap 13 (5-15); BUN/Creatinine Ratio 21.2 (10.0-20.0); Blood Urea Nitrogen 14 mg/dL (9-23); Calcium 9.1 mg/dL (8.7-10.4); Carbon Dioxide 28 mmol/L (20-31); Chloride 105 mmol/L (98-107); Glucose 75 mg/dL (74-106); Potassium 4.0 mmol/L (3.5-5.1); Total Protein 6.7 g/dL (5.7-8.2)
[2025-03-30 13:30] LABS: Bilirubin, Total 0.7 mg/dL (0.2-1.0); Free T3 2.9 pg/mL (2.3-4.2); Free T4 (Free Thyroxine) 1.42 ng/dL (0.89-1.76)
[2025-03-30 13:31] LABS: Sodium 146 mmol/L (136-145)
[2025-03-30 16:35] LABS: Triglycerides 79 mg/dL (< 150)
[2025-03-30 16:36] LABS: HDL Cholesterol 48 mg/dL (40-59)
[2025-03-30 16:37] LABS: Cholesterol 204 mg/dL (< 200)
== END | disposition home or self-care (01) ==
LOC: LAB 11:51
PROVIDERS: ATTEND Internal Medicine
DX: E03.9 Hypothyroidism, unspecified (principal); I48.91 Unspecified atrial fibrillation
CPT/HCPCS: 36415; 80053; 80061; 84439; 84443; 84480; 84481

== ENCOUNTER 2025-05-04 08:12 | Outpatient (CLI) | payer BC | END 2025-05-04 17:00 | disposition home or self-care (01) | LOC: LAB 08:12 | PROVIDERS: ATTEND Internal Medicine | DX: E03.9 Hypothyroidism, unspecified (principal); M54.2 Cervicalgia; M79.641 Pain in right hand | CPT/HCPCS: 36415; 82533; 82626; 85652; 86141 ==